=== PATIENT | male | born 1955 | race Caucasian/White ===

== ENCOUNTER 2016-06-23 13:45 | Inpatient (IN) | payer OTHER ==
[~2016-06-23] VITALS: Ht 180.3 cm; Wt 134.2 kg
--- NOTE | ~2016-06-23 | D ---
[facility] [address] [place] [address] DISCHARGE SUMMARY Name: JENN BASURTO [place] Room #: 516-1 ADM IN M.R.#: [id number] Admission: 06/23/16 Attend Phys: Vimal Contreras MD Discharge: Date of : 55 Report #: [id number] THIS REPORT FOR: //name// CC: Vimal BUENO DATE OF SERVICE: 07/11/2016 ADDENDUM The patient missed some therapy on 07/08/2016 due to low blood pressure. By: 0946 1203 Vimal Contreras MD /nt
--- NOTE | ~2016-06-23 | EKG ---
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: Kait LADD : 1955 Requested By: Odell Castanon Order Number: [id number] MD: John Alatorre Measurements Intervals [place] Rate: 67 P: 52 NM: 179 QRS: 93 QRSD: 105 T: 103 QT: 435 QTc: 460 Interpretive Statements Sinus rhythm Early R wave progression Nonspecific repol abnormality, diffuse leads Compared to ECG 06/20/2016 07:52:33 nonspecific change in the ST and T wave segments Electronically Signed On 07-08-2016 9:41:19 CDT by John Alatorre [email or web address] <ELECTRONICALLY SIGNED> By: John Alatorre MD, [facility] 07/08/16 0941 0 0 John Alatorre MD, [facility] /EPI
--- NOTE | ~2016-06-23 | HC ---
[facility] [place] [address] CONSULTATION Name: JENN BASURTO Room #: 516-1 ADM IN M.R.#: [id number] Admission: 06/23/16 Attend Phys: Vimal Contreras MD Discharge: Date of : 55 Report #: [id number] THIS REPORT FOR: //name// CC: Vimal BUENO DATE OF SERVICE: 06/26/2016 NEUROBEHAVIORAL STATUS EXAM AGE: 60. ATTENDING PHYSICIAN: Vimal Contreras M.D. CLINICAL SALES CONSULTANT: Mike Kong, PhD CLINICAL PRESENTATION: The patient is a 60-year-old male admitted to the rehabilitation unit at [facility] for a comprehensive inpatient rehabilitation program to improve functional mobility, activities of daily living and self-care and mental status secondary to an encephalopathy with a hypoxic component. 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 He had been at home, living with his and engaged in daily activities until Monday morning of the week he was admitted. He is reported to have a deterioration in functioning that led to this current hospitalization. Upon admission, he was identified to have acute mental status changes with hypoxia and a temperature of 103. Subsequent diagnosis was an encephalopathy with pulmonary infiltrates. A complete description of his medical condition and history can be found in his medical record. Neuropsychological consultation was requested to provide assistance in the assessment of cognitive and emotional status and to provide recommendations and services. Prior to this most recent medical event, he was living with the assistance of his in their home. He was independent with most basic activities of daily living. He required assistance with instrumental activities of daily living and some aspects of dressing because of residual right hemiparesis from his earlier stroke. He was able to walk independently and did not show evidence of difficulty in verbal expression or level of orientation. TECHNIQUES UTILIZED: Clinical interview, review of medical records, staff consultation and behavioral observation, family interview and Mini Mental Status Exam [address] [address] CONSULTATION Name: JENN BASURTO CEC[place] Room #: 516-1 ADM IN ..#: [id number] Admission: 06/23/16 Attend Phys: Vimal Contreras MD Discharge: Date of : 55 Report #: [id number] EXAMINATION FINDINGS: The patient was very difficult to arouse during my interview. He was drowsy and frequently would close his eyes and begin snoring. He is reported to have been sluggish and sleepy throughout the morning and early afternoon. His describes him as having been more alert and oriented during his initial transfer to the rehabilitation unit. The patient was not oriented to place or time. He could not describe the reason for his hospitalization. He was not reported to have shown symptoms of anxiety or depression prior to this recent hospitalization. There is no history of substance abuse. Sleep and appetite were described as within normal limits up until this last week. DIAGNOSTIC IMPRESSION: 1. Delirium; hypoactive, acute. 2. Neurocognitive disorder, unspecified, without behavior disorder - extent to be determined. RECOMMENDATIONS: Consider reducing as medically appropriate medications with sedating features. He is taking baclofen, gabapentin and amitriptyline along with hydrocodone. Those medications are reported to have affected his level of alertness and arousal in his past. At this time, he appears very sedated, sluggish and drowsy. I will continue to follow up as needed during his rehabilitation program. Thank you very much for allowing me to provide the consultation on this patient. <ELECTRONICALLY SIGNED> By: Mike Kong, PhD 07/03/16 1508 1407 0058 Mike Kong, PhD /nt
--- NOTE | ~2016-06-23 | H ---
[facility] [place] [address] HISTORY AND PHYSICAL Name: JENN BASURTO Room #: 516-1 ADM IN M.R.#: [id number] Admission: 06/23/16 Attend Phys: Vimal Contreras MD Discharge: Date of : 55 Report #: [id number] THIS REPORT FOR: //name// CC: Vimal BUENO DATE OF SERVICE: 06/24/2016 HISTORY OF PRESENT ILLNESS: The patient is a 60-year-old white male previously known to me from a prior acute inpatient rehabilitation stay 01/02/2016 through 01/22/2016. At that point, he had a prior hemorrhagic stroke with significant residual right hemiparesis and had inapparent unwitnessed seizure. He did well on rehabilitation, was able to be discharged back home on thin liquids transferring min to contact guard assistance and ambulating contact guard to standby 150 feet with a quad cane and right AFO. He has been back home living with his . He was readmitted for acute hospitalization on 06/20/2016 with acute mental status changes with hypoxia and a temperature of 103. He was diagnosed with encephalopathy with significant pulmonary infiltrates and Neurology saw him and diagnosed him with an encephalopathy with no note of any seizures. He was suspected to have aspiration contributing to his pneumonia. He was further stabilized and has been transferred now for acute in-hospital inpatient rehabilitation. PAST MEDICAL HISTORY: Includes the prior ischemic stroke in 05/2015 followed by hemorrhagic stroke in 06/2015 with residual right-sided hemiparesis. 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 Past history also includes coronary artery disease with prior [place], obstructive sleep apnea, exogenous obesity, chronic back pain, history of ITP, ischemic cardiomyopathy, DVT with inferior vena cava filter. PAST SURGICAL HISTORY: Includes shoulder surgery, heart catheterization followed by coronary artery bypass grafting, trach placement with subsequent removal, PEG tube placement with subsequent removal. ALLERGIES: LYRICA and LORTAB. MEDICATIONS: Please see the full medication listing. SOCIAL HISTORY: Lives with his , house 3 steps in with 4 inside. Premorbid quad cane ambulator with a right AFO. 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 HABITS: Smoked 3 packs per day, quitting in 2011. Occasional alcohol. FAMILY HISTORY: Significant for Parkinson's disease and heart disease in his father. [facility] [address] [place] [address] HISTORY AND PHYSICAL Name: JENN BASURTO HEATH Room #: 516-1 ADM IN ..#: [id number] Admission: 06/23/16 Attend Phys: Vimal Contreras MD Discharge: Date of : 55 Report #: [id number] REVIEW OF SYSTEMS: No current complaints of chest pain, shortness of breath or abdominal discomfort. He does have the expressive aphasia, although it might be a little better. No current complaints of chest pain, shortness of breath or abdominal discomfort. PHYSICAL EXAMINATION: GENERAL: A 60-year-old obese white male in no obvious distress. VITAL SIGNS: Last recorded temperature 98.8, pulse 76, respirations 18, blood pressure 147/65. NEUROLOGIC: He is alert, currently on 3 liters nasal prong O2, bearded white male, significant exogenous obesity. He does have an expressive aphasia, but can follow basic 1 step commands. He has a depressed right nasolabial fold. CHEST: Sounded clear to auscultation. CARDIAC: Sounded regular rate and rhythm. ABDOMEN: Significant obesity, bowel sounds positive, nontender. GENITOURINARY AND RECTAL: Deferred. EXTREMITIES: He has functional range of motion of the left upper and left lower extremity without obvious focal weakness. Right upper extremity strength is a grade 2/5. He has trace movement of the right fingers. He does have full fingerbreadth subluxation of that right shoulder. Tone was decreased. Right lower extremity strength was at least a grade 3-3+/5. Right ankle dorsiflexion is a grade 2 to 2-, eversion a 2 to 2-. Functionally, he is mod assist with sit to stand. He ambulates 8 steps with assistance, noted to be min assist with a cane. ASSESSMENT: A 60-year-old white male with the following problem list: 1. Encephalopathy with likely a hypoxic component. 2. Acute respiratory failure that has improved. 3. Acute hypercapnic hypoxic respiratory failure. 4. Pneumonia, Streptococcus question aspiration. 5. Prior hemorrhagic stroke 06/2015 with residual right upper extremity greater than right lower extremity dense hemiparesis. 6. History of obstructive sleep apnea. 7. History of diastolic congestive heart failure. 8. History of atrial fibrillation. 9. Exogenous obesity. PLAN: The patient is admitted for acute in-hospital inpatient rehabilitation. From a postadmission physician evaluation perspective, there are no relevant changes since the preadmission screening. Please see the above review of prior and current medical and functional conditions and comorbidities. Please see the patient's previous and current functional status. As far as risk of complications, he has the above noted medical comorbidities. Initial plan of care involves the interdisciplinary acute inpatient rehabilitation program with goal of maximizing the patient's functional independence, so that he can [address] [address] HISTORY AND PHYSICAL Name: JENN BASURTO Room #: 516-1 ADM IN M.R.#: [id number] Admission: 06/23/16 Attend Phys: Vimal Contreras MD Discharge: Date of : 55 Report #: [id number] hopefully return back to the home setting with his . Prognosis is reasonably good with estimated length of stay probably at least 10 days to 2 weeks and potentially longer. We will need to see if he can be weaned off the oxygen as he indicated he was not on oxygen premorbidly. Potential barriers would include his multiple medical comorbidities and decreased functional status. <ELECTRONICALLY SIGNED> By: Vimal Contreras MD 06/24/16 1539 1023 1058 Vimal Contreras MD /nt
--- NOTE | ~2016-06-23 | PLAN ---
[facility] [place] [address] [place] [address] REHAB UNIT PLAN OF CARE Name: JENN BASURTO Room #: 516-1 ADM IN M.R.#: [id number] Admission: 06/23/16 Attend Phys: Vimal Contreras MD Discharge: Date of : 55 Report #: [id number] THIS REPORT FOR: //name// CC: Vimal BUENO DATE OF SERVICE: 06/25/2016 HISTORY OF PRESENT ILLNESS: The patient is seen back earlier. He is no distress. Temperature 36.9, pulse 73, respirations 18, blood pressure 120/63. The patient has been urinating without difficulty with bladder scan results noted to be less than 100 mL. He is working in therapies with transfers, max assist. Gait is min assist 75 feet with a quad cane and the AFO. In occupational therapy, he is dependent for lower body dressing, mod assist for upper body dressing. In speech therapy, he has mild to moderate comprehensive deficits with moderate to severe expressive deficits. ASSESSMENT: 1. Encephalopathy with likely a hypoxic component. 2. Acute respiratory failure that improved. 3. Acute hypoxic hypercapnic respiratory failure. 4. Pneumonia Streptococcus, question aspiration. 5. Prior hemorrhagic stroke 06/16/2016 with residual right upper extremity greater than right lower extremity dense hemiparesis. 6. History of obstructive sleep apnea. 7. History of diastolic congestive heart failure. 8. History of atrial fibrillation. 9. Exogenous obesity. PLAN: The overall plan of care is based on the preadmission screen, post-admission physician evaluation and information garnered from therapy assessments. 1. Estimated length of stay is probably at least 10 days to 2 weeks and likely longer as needed. 2. Medical prognosis is reasonably good. 3. Anticipated interventions include the interdisciplinary acute inpatient rehabilitation program. 4. Anticipated functional outcomes would be improvement in mobility and ADLs swallowing as well as cognition, so that he can return back to the home setting. 5. Discharge destination would be back home with his . 6. Expected therapy by discipline includes PT, OT and speech 1 hour per day each [facility] [address] [place] [address] REHAB UNIT PLAN OF CARE Name: JENN BASURTO [place] Room #: 516-1 ADM IN M.R.#: [id number] Admission: 06/23/16 Attend Phys: Vimal Contreras MD Discharge: Date of : 55 Report #: [id number] five days a week throughout the duration of the acute inpatient rehabilitation stay. <ELECTRONICALLY SIGNED> By: Vimal Contreras MD 07/04/16 1447 1917 2034 Vimal Contreras MD /nt
--- NOTE | ~2016-06-23 | D ---
[facility] [address] [place] [address] DISCHARGE SUMMARY Name: JENN BASURTO HEATH Room #: 516-1 DIS IN M.R.#: [id number] Admission: 06/23/16 Attend Phys: Vimal Contreras MD Discharge: 07/12/16 Date of : 55 Report #: [id number] THIS REPORT FOR: //name// CC: Vimal BUENO DATE OF SERVICE: 07/12/2016 ADDENDUM He is actually being discharged home with adult daycare rather than going home with home healthcare. His feels comfort level with the wrapping and lymphedema treatments and we will be assisting him in the home setting. He will be going to adult daycare at [place] and will not be home bound. By: 1504 2220 Vimal Contreras MD /nt
[~2016-06-23 13:45] MED LIST: ACETAMINOPHEN-1 EAC1 PO; AMITRIPTYLINE H10 M3 PO; AMPICILLIN-SULB3 GM IV; ASPIRIN81 M2 PO; ATIVAN0.5 MG PO; ATORVASTATIN CA40 MG PO; BENADRYL25 MG PO; CATHFLO ACT2 MG/VIAL INJECTION; CELEBREX 200 M200 M1; COREG3.125 MG PO; COUMADIN 3 MG TA3 M1 PO; COUMADIN 4 MG TA4 M1 PO; COUMADIN 5 MG TA5 M1 PER TUBE; CYMBALTA20 MG; CYMBALTA30 MG; DEPAKENE250 MG PER TUBE; DEPAKENE250 MG PO; DEPAKOTE 250MG250 M1 PO; DEPAKOTE ER500 MG PO; ENOXAPARIN120 MG/0.1 SUBQ; FISH OIL 1,0001 EAC5; GABAPENTIN 100100 MG PO; GEMFIBROZIL 60600 M1 PO; LASIX 20 MG TAB20 MG PO; LASIX 40 MG TAB40 M1 PO; LASIX 40 MG TAB40 M2 IV; LIORESAL 10 MG10 MG PO; MILK OF MA2400 MG/10 PO; MULTIVITAMINS PO; NEURONTIN600 MG PO; NITROGLYCERIN0.4 MG SUBLING; OXYCODONE H5 MG/5 ML PO; PACERONE 200 M200 M1 PO; PEPCID40 MG PO; PERCOCET 5-3251 EACH PO; PERCOCET PO; POTASSIUM20 PO; PRADAXA150 MG PO; PREDNISONE 20 M20 MG PO; PREDNISONE50 MG PO; PRILOSEC OTC20 MG PO; PRILOSEC20 MG PER TUBE; PROTONIX 20 MG20 M1 PO; PROTONIX40 MG PO; REQUIP0.5 MG PER TUBE; SEROQUEL 50 MG50 MG PER TUBE; TOBREX5 ML OPHTHALMIC; TUSSIONEX PENN473 ML PO; ULTRACET TABLE1 EACH PO; ULTRAM 50MG TAB50 MG PO; VALPROIC ACID250 MG PO; VITAMIN D1000 UNI1 PO; ZOFRAN ODT4 MG PO; ZPAK PO
[2016-06-23] MEDS ORDERED: AUGMENTIN 875-1 EACH PO (14:15)
[2016-06-23 17:30] VITALS: BP 132/62
[2016-06-23 20:15] VITALS: BP 121/69
[2016-06-24 06:30] VITALS: BP 147/65
[2016-06-24 10:00] LABS: ALBUMIN 2.8 g/dL (3.4-5.0); CALCIUM 8.6 mg/dL (8.5-10.1); MAGNESIUM 2.1 mg/dL (1.8-2.4); POTASSIUM 3.3 mmol/L (3.5-5.1); TOTAL BILIRUBIN 0.4 mg/dL (<0.1-1.0); TOTAL PROTEIN 6.3 g/dL (6.4-8.2)
[2016-06-24 15:52] VITALS: BP 114/64
[2016-06-24 20:35] VITALS: BP 136/79
[2016-06-25 05:47] VITALS: BP 148/75
[2016-06-25 16:20] VITALS: BP 120/63
[2016-06-25 19:29] VITALS: BP 125/75
[2016-06-26 05:19] VITALS: BP 115/57
[2016-06-26 08:30] VITALS: BP 132/67
[2016-06-26 12:26] VITALS: BP 110/85
[2016-06-26 14:10] LABS: HEMATOCRIT 32.3 % (42.0-52.0); HEMOGLOBIN 10.7 gm/dL (14.0-18.0); MCH 30.2 pg (26.0-34.0); MCHC 33.2 g/dL (28.0-37.0); RBC 3.55 mil/uL (4.50-6.00); RDW 14.1 % (10.5-14.5)
[2016-06-26 14:25] LABS: CALCIUM 8.9 mg/dL (8.5-10.1); POTASSIUM 4.9 mmol/L (3.5-5.1)
[2016-06-26 16:00] VITALS: BP 109/62
[2016-06-27 04:00] VITALS: BP 130/63
[2016-06-27 15:34] VITALS: BP 129/72
[2016-06-27 20:53] VITALS: BP 124/64
[2016-06-28 03:00] VITALS: BP 113/58
[2016-06-28 09:00] VITALS: BP 125/60
[2016-06-28 16:00] VITALS: BP 100/50
[2016-06-28 21:55] VITALS: BP 124/75
[2016-06-29 05:17] LABS: HEMOGLOBIN 10.5 gm/dL (14.0-18.0); MCH 30.5 pg (26.0-34.0); MCHC 33.9 g/dL (28.0-37.0); RBC 3.45 mil/uL (4.50-6.00); RDW 14.2 % (10.5-14.5); WBC 7.4 thou/uL (4.0-11.0)
[2016-06-29 05:25] VITALS: BP 115/64
[2016-06-29 05:55] LABS: CALCIUM 8.7 mg/dL (8.5-10.1); CREATININE 1.1 mg/dL (0.6-1.3); MAGNESIUM 2.2 mg/dL (1.8-2.4); POTASSIUM 4.4 mmol/L (3.5-5.1)
[2016-06-29 14:27] VITALS: BP 114/69
[2016-06-29 16:09] VITALS: BP 123/62
[2016-06-30 16:43] VITALS: BP 129/62
[2016-07-01 04:12] VITALS: BP 119/52
[2016-07-01 05:37] LABS: CALCIUM 8.5 mg/dL (8.5-10.1); POTASSIUM 4.6 mmol/L (3.5-5.1)
[2016-07-01 14:59] VITALS: BP 99/49
[2016-07-01 15:32] VITALS: BP 119/59
[2016-07-02 05:40] VITALS: BP 117/54
[2016-07-02 16:00] VITALS: BP 113/60
[2016-07-03 04:27] LABS: CALCIUM 8.5 mg/dL (8.5-10.1); CREATININE 1.2 mg/dL (0.6-1.3); POTASSIUM 3.8 mmol/L (3.5-5.1)
[2016-07-03 04:44] LABS: HEMATOCRIT 33.1 % (42.0-52.0); MCH 30.5 pg (26.0-34.0); MCHC 33.3 g/dL (28.0-37.0); MCV 91.6 fL (80.0-100.0); RBC 3.61 mil/uL (4.50-6.00); RDW 14.4 % (10.5-14.5); WBC 7.3 thou/uL (4.0-11.0)
[2016-07-03 06:03] VITALS: BP 137/62
[2016-07-03 16:00] VITALS: BP 120/58
[2016-07-04 04:00] VITALS: BP 101/54
[2016-07-04 05:52] LABS: CALCIUM 8.6 mg/dL (8.5-10.1); CREATININE 1.2 mg/dL (0.6-1.3)
[2016-07-04 16:00] VITALS: BP 115/59
[2016-07-05 04:14] LABS: CALCIUM 8.8 mg/dL (8.5-10.1); CREATININE 1.1 mg/dL (0.7-1.3); POTASSIUM 3.6 mmol/L (3.5-5.1)
[2016-07-05 05:20] VITALS: BP 109/46
[2016-07-05 08:39] VITALS: BP 111/67
[2016-07-05 15:04] VITALS: BP 103/69
[2016-07-06 05:45] VITALS: BP 127/68
[2016-07-06 06:03] LABS: HEMATOCRIT 35.9 % (42.0-52.0); HEMOGLOBIN 12.1 gm/dL (14.0-18.0); MCH 30.4 pg (26.0-34.0); MCHC 33.7 g/dL (28.0-37.0); MCV 90.2 fL (80.0-100.0); RBC 3.98 mil/uL (4.50-6.00); RDW 14.1 % (10.5-14.5); WBC 5.7 thou/uL (4.0-11.0)
[2016-07-06 06:10] LABS: CREATININE 1.1 mg/dL (0.7-1.3)
[2016-07-06 06:14] LABS: POTASSIUM 2.8 mmol/L (3.5-5.1)
[2016-07-06 08:00] VITALS: BP 116/64
[2016-07-06 16:17] VITALS: BP 110/47
[2016-07-06 19:51] VITALS: BP 109/69
[2016-07-07 06:08] VITALS: BP 121/63
[2016-07-07 11:45] VITALS: BP 146/71
[2016-07-07 13:43] LABS: HEMATOCRIT 36.9 % (42.0-52.0); HEMOGLOBIN 12.5 gm/dL (14.0-18.0); MCH 30.1 pg (26.0-34.0); MCHC 33.8 g/dL (28.0-37.0); MCV 89.1 fL (80.0-100.0); RBC 4.15 mil/uL (4.50-6.00); RDW 14.5 % (10.5-14.5); WBC 5.7 thou/uL (4.0-11.0)
[2016-07-07 13:52] LABS: CALCIUM 8.9 mg/dL (8.5-10.1); CREATININE 1.1 mg/dL (0.7-1.3); MAGNESIUM 2.1 mg/dL (1.8-2.4); POTASSIUM 3.2 mmol/L (3.5-5.1)
[2016-07-08 05:06] VITALS: BP 79/40
[2016-07-08 06:15] VITALS: BP 67/37
[2016-07-08 06:23] LABS: HEMATOCRIT 35.2 % (42.0-52.0); HEMOGLOBIN 11.9 gm/dL (14.0-18.0); MCH 30.6 pg (26.0-34.0); MCHC 33.8 g/dL (28.0-37.0); MCV 90.4 fL (80.0-100.0); RBC 3.89 mil/uL (4.50-6.00); RDW 15.1 % (10.5-14.5); WBC 10.6 thou/uL (4.0-11.0)
[2016-07-08 06:35] LABS: CALCIUM 8.9 mg/dL (8.5-10.1); MAGNESIUM 2.2 mg/dL (1.8-2.4); POTASSIUM 3.6 mmol/L (3.5-5.1)
[2016-07-08 06:36] LABS: CREATININE 2.6 mg/dL (0.7-1.3)
[2016-07-08 10:00] VITALS: BP 90/53
[2016-07-08 15:26] VITALS: BP 87/45
[2016-07-08 18:15] VITALS: BP 100/53
[2016-07-09 03:34] VITALS: BP 95/58
[2016-07-09 03:37] VITALS: BP 115/60
[2016-07-09 05:32] LABS: HEMATOCRIT 34.1 % (42.0-52.0); HEMOGLOBIN 11.5 gm/dL (14.0-18.0); MCH 30.9 pg (26.0-34.0); MCHC 33.7 g/dL (28.0-37.0); MCV 91.6 fL (80.0-100.0); RBC 3.72 mil/uL (4.50-6.00); RDW 15.1 % (10.5-14.5); WBC 5.6 thou/uL (4.0-11.0)
[2016-07-09 05:44] LABS: CALCIUM 8.6 mg/dL (8.5-10.1); CREATININE 2.2 mg/dL (0.7-1.3); MAGNESIUM 2.5 mg/dL (1.8-2.4)
[2016-07-09 16:00] VITALS: BP 111/50
[2016-07-10 04:05] LABS: CALCIUM 8.5 mg/dL (8.5-10.1); CREATININE 1.7 mg/dL (0.7-1.3); POTASSIUM 4.2 mmol/L (3.5-5.1)
[2016-07-10 05:09] VITALS: BP 116/46
[2016-07-10 15:45] VITALS: BP 121/68
[2016-07-11 05:46] VITALS: BP 124/56
[2016-07-11 10:08] LABS: ABG SAMPLE TYPE ARTERIAL; BE(vivo) 2.8 mmol/L (-2 to +3); O2(CT) 16.6 mL/dL (15.0-23.0); O2Hb 95.5 % (92.0-98.0); pH 7.447 (7.360-7.450); tCO2 28.2 mmol/L (24.0-30.0)
[2016-07-11 10:11] LABS: LACTATE 3.73 mmol/L (0.5-2.0); STICK SITE L.RADIAL
[2016-07-11 16:00] VITALS: BP 118/51
[2016-07-11 16:57] LABS: HEMATOCRIT 35.4 % (42.0-52.0); HEMOGLOBIN 11.9 gm/dL (14.0-18.0); MCH 30.3 pg (26.0-34.0); MCHC 33.5 g/dL (28.0-37.0); MCV 90.5 fL (80.0-100.0); RBC 3.91 mil/uL (4.50-6.00); WBC 4.9 thou/uL (4.0-11.0)
[2016-07-11 17:14] LABS: CALCIUM 8.5 mg/dL (8.5-10.1); POTASSIUM 4.1 mmol/L (3.5-5.1)
[2016-07-11 20:29] LABS: URINE BILIRUBIN NEGATIVE (Negative); URINE BLOOD NEGATIVE (Negative); URINE COLOR YELLOW; URINE GLUCOSE-RANDOM* NEGATIVE (Negative); URINE KETONES NEGATIVE (Negative); URINE LEUKOCYTES-REFLEX NEGATIVE (Negative); URINE PROTEIN (DIPSTICK) NEGATIVE (Negative); URINE UROBILINOGEN 0.2 E.U./dl (0.2-1.0)
[2016-07-12] VITALS (7 sets, daily range): BP systolic 101–112; BP diastolic 44–66
[2016-07-12] MEDS ORDERED: LIORESAL 10 MG10 MG PO (09:56)
[2016-07-12] MEDS ORDERED: GABAPENTIN 100100 MG PO (09:56)
[2016-07-12] MEDS ORDERED: FLOMAX0.4 MG PO (09:56)
[2016-07-12] MEDS ORDERED: PRINIVIL5 MG PO (09:56)
[2016-07-12] MEDS ORDERED: COLACE100 MG PO (09:56)
== END 2016-07-12 17:00 | disposition home or self-care (01) | DRG 91 ==
PROVIDERS: Hospitalist; Internal Medicine; Internal Medicine Pulmonary Disease; Nurse Practitioner
PROC: 5A09557 Assistance with Respiratory Ventilation, Greater than 96 Consecutive Hours, Continuous Positive Airway Pressure (ICD-10-PCS; principal; 2016-06-24)
DX: G93.1 Anoxic brain damage, not elsewhere classified (principal); J96.01 Acute respiratory failure with hypoxia; J96.02 Acute respiratory failure with hypercapnia; J15.20 Pneumonia due to staphylococcus, unspecified; I50.43 Acute on chronic combined systolic (congestive) and diastolic (congestive) heart failure; G92 Toxic encephalopathy; N17.9 Acute kidney failure, unspecified; E46 Unspecified protein-calorie malnutrition; I69.351 Hemiplegia and hemiparesis following cerebral infarction affecting right dominant side; Z68.41 Body mass index [BMI] 40.0-44.9, adult; G47.33 Obstructive sleep apnea (adult) (pediatric); I48.91 Unspecified atrial fibrillation; E66.09 Other obesity due to excess calories; G31.84 Mild cognitive impairment of uncertain or unknown etiology; I89.0 Lymphedema, not elsewhere classified; G89.29 Other chronic pain; M54.9 Dorsalgia, unspecified; I25.5 Ischemic cardiomyopathy; R53.81 Other malaise; I25.10 Atherosclerotic heart disease of native coronary artery without angina pectoris; E78.5 Hyperlipidemia, unspecified; I11.0 Hypertensive heart disease with heart failure; J32.9 Chronic sinusitis, unspecified; T50.905A Adverse effect of unspecified drugs, medicaments and biological substances, initial encounter; E87.6 Hypokalemia; I25.2 Old myocardial infarction; Z86.718 Personal history of other venous thrombosis and embolism; Z88.8 Allergy status to other drugs, medicaments and biological substances; Z82.49 Family history of ischemic heart disease and other diseases of the circulatory system; Z81.8 Family history of other mental and behavioral disorders; Z87.891 Personal history of nicotine dependence; Z91.14 Patient's other noncompliance with medication regimen; Y92.89 Other specified places as the place of occurrence of the external cause; Z93.0 Tracheostomy status; Z95.1 Presence of aortocoronary bypass graft; Z93.1 Gastrostomy status
CPT/HCPCS: 10112

== ENCOUNTER 2016-08-03 00:28 | Emergency (ER) | payer OTHER ==
[~2016-08-03] VITALS: Ht 180.3 cm; Wt 133.8 kg
--- NOTE | ~2016-08-03 | EKG ---
[place] [address] [facility] [place] [address] ELECTROCARDIOGRAM REPORT Name: SHERINEJENNDesiree JOE [id number] Admission: 08/03/16 Attend Phys: Discharge: 08/03/16 Date of : 55 Report #: [id number] THIS REPORT FOR: //name// [facility] ED Test Date: 2016-08-03 Test Time: 00:42:16 Pat Name: JENN BASURTO Department: Room: Gender: M Estate Planning Counselor: WAQAS : 1955 Requested By: Aroldo Caldera Order Number: [id number] MD: John Alatorre Measurements Intervals [place] Rate: 69 P: 38 ND: 176 QRS: 89 QRSD: 109 T: 104 QT: 408 QTc: 437 Interpretive Statements Sinus rhythm Borderline right axis deviation Borderline repolarization abnormality Compared to ECG 07/08/2016 08:11:43 No significant change was found Electronically Signed On 08-03-2016 8:02:59 CDT by John Alatorre [email or web address] <ELECTRONICALLY SIGNED> By: John Alatorre MD, [facility] 08/03/16 0802 John Alatorre MD, [facility] /EPI
[~2016-08-03 00:28] MED LIST changes: +AUGMENTIN 875-1 EACH PO; +COLACE100 MG PO; +FLOMAX0.4 MG PO; +PRINIVIL5 MG PO
[2016-08-03 01:12] LABS: ABSOLUTE NEUTROPHILS 2.1 thou/uL (1.4-8.2); BASOPHILS 0.4 % (0.0-2.0); HEMATOCRIT 34.2 % (42.0-52.0); HEMOGLOBIN 11.5 gm/dL (14.0-18.0); LYMPHOCYTES 36.3 % (24.0-44.0); MCHC 33.8 g/dL (28.0-37.0); MONOCYTES 11.4 % (1.0-8.0); PLATELET COUNT 162 thou/uL (150-400); POLYS 47.9 % (36.0-66.0); RBC 3.72 mil/uL (4.50-6.00); RDW 14.8 % (10.5-14.5); WBC 4.3 thou/uL (4.0-11.0)
[2016-08-03 01:22] LABS: ANION GAP 7 mmol/L (7-16); BUN 14 mg/dL (7-18); CALCIUM 8.7 mg/dL (8.5-10.1); CHLORIDE 102 mmol/L (98-107); CO2 28 mmol/L (21-32); CREATININE 1.2 mg/dL (0.7-1.3); GLUCOSE 115 mg/dL (74-106); POTASSIUM 4.1 mmol/L (3.5-5.1); SODIUM 137 mmol/L (136-145)
[2016-08-03 01:32] LABS: MANUAL DIFF NO
[2016-08-03 01:34] LABS: ALBUMIN 3.2 g/dL (3.4-5.0); ALKALINE PHOSPHATASE 59 U/L (46-116); NT-PRO BRAIN NAT PEPTIDE 171 pg/mL (<300); SGOT 17 U/L (15-37); SGPT 20 U/L (30-65); TOTAL BILIRUBIN 0.2 mg/dL (<0.1-1.0); TOTAL PROTEIN 6.2 g/dL (6.4-8.2); TROPONIN-I < 0.04 ng/mL (<0.04-0.07)
[2016-08-03 01:59] LABS: URINE BLOOD NEGATIVE (Negative); URINE COLOR YELLOW; URINE GLUCOSE-RANDOM* NEGATIVE (Negative); URINE KETONES TRACE (Negative); URINE LEUKOCYTES-REFLEX NEGATIVE (Negative); URINE PROTEIN (DIPSTICK) NEGATIVE (Negative); URINE SPECIFIC GRAVITY 1.025 (1.003-1.035)
[2016-08-03 02:12] LABS: ICTOTEST (BILI CONFIRMATORY) Negative (Negative); URINE BILIRUBIN NEGATIVE (Negative)
[2016-08-03] MEDS ORDERED: TESSALON PERLE100 MG PO (02:35)
[2016-08-03] MEDS ORDERED: VENTOLIN HFA 1818 GM INH (02:35)
== END 2016-08-03 03:12 | disposition home or self-care (01) ==
LOC: ER 00:28
PROVIDERS: Emergency Medicine
DX: J20.8 Acute bronchitis due to other specified organisms (principal); G89.29 Other chronic pain; I11.0 Hypertensive heart disease with heart failure; I50.9 Heart failure, unspecified; Z95.1 Presence of aortocoronary bypass graft; Z86.73 Personal history of transient ischemic attack (TIA), and cerebral infarction without residual deficits; Z86.69 Personal history of other diseases of the nervous system and sense organs; Z88.5 Allergy status to narcotic agent; Z88.8 Allergy status to other drugs, medicaments and biological substances; F17.210 Nicotine dependence, cigarettes, uncomplicated

== ENCOUNTER 2016-08-21 09:12 | Emergency (ER) | payer OTHER ==
[~2016-08-21] VITALS: Ht 180.3 cm; Wt 130.6 kg
[~2016-08-21 09:12] MED LIST changes: +TESSALON PERLE100 MG PO; +VENTOLIN HFA 1818 GM INH
[2016-08-21 09:48] LABS: ABSOLUTE NEUTROPHILS 2.3 thou/uL (1.4-8.2); BASOPHILS 0.6 % (0.0-2.0); EOSINOPHILS 7.3 % (0.0-3.0); HEMATOCRIT 37.1 % (42.0-52.0); HEMOGLOBIN 12.4 gm/dL (14.0-18.0); LYMPHOCYTES 30.6 % (24.0-44.0); MCH 31.2 pg (26.0-34.0); MCHC 33.4 g/dL (28.0-37.0); MCV 93.5 fL (80.0-100.0); MONOCYTES 8.3 % (1.0-8.0); PLATELET COUNT 143 thou/uL (150-400); POLYS 53.2 % (36.0-66.0); RBC 3.97 mil/uL (4.50-6.00); RDW 14.8 % (10.5-14.5); WBC 4.3 thou/uL (4.0-11.0)
[2016-08-21 09:52] LABS: MANUAL DIFF NO
[2016-08-21 09:56] LABS: CALCIUM 8.4 mg/dL (8.5-10.1); POTASSIUM 3.9 mmol/L (3.5-5.1)
== END 2016-08-21 11:06 | disposition home or self-care (01) ==
LOC: ER 09:12
PROVIDERS: Physician Assistant
DX: R56.9 Unspecified convulsions (principal); R25.2 Cramp and spasm; G47.30 Sleep apnea, unspecified; I21.4 Non-ST elevation (NSTEMI) myocardial infarction; I11.0 Hypertensive heart disease with heart failure; I50.9 Heart failure, unspecified; G40.909 Epilepsy, unspecified, not intractable, without status epilepticus; Z95.5 Presence of coronary angioplasty implant and graft; Z88.8 Allergy status to other drugs, medicaments and biological substances; Z87.891 Personal history of nicotine dependence

== ENCOUNTER → 2016-08-23 | Outpatient (CLI) | payer OTHER | LOC: RAD 12:09 | DX: R06.02 Shortness of breath (principal) ==

== ENCOUNTER 2016-10-23 22:17 | Observation (INO) | payer OTHER ==
[~2016-10-23] VITALS: Ht 180.3 cm; Wt 125.8 kg
--- NOTE | ~2016-10-23 | EKG ---
[address] [place] [address] ELECTROCARDIOGRAM REPORT Name: JENN BASURTO [place] Room #: 210-P [facility]#: [id number] Admission: 10/24/16 Attend Phys: Corby Law MD Discharge: 10/24/16 Date of : 55 Report #: [id number] THIS REPORT FOR: //name// [facility] ED Test Date: 2016-10-23 Test Time: 22:22:17 Pat Name: JENN BASURTO Department: Room: 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: JERROD : 1955 Requested By: Christophe Fonseca Order Number: [id number] MD: John Alatorre Measurements Intervals [place] Rate: 65 P: 39 CO: 180 QRS: 95 QRSD: 109 T: 88 QT: 440 QTc: 458 Interpretive Statements Sinus rhythm Right axis deviation Repolarization abnormality, anterior leads Compared to ECG 08/03/2016 00:42:16 No significant changes Electronically Signed On 10-26-2016 7:02:47 CDT by John Alatorre [email or web address] <ELECTRONICALLY SIGNED> By: John Alatorre MD, [facility] 10/26/16701 21 21 John Alatorre MD, [facility] /EPI
[~2016-10-23 22:17] MED LIST changes: +SENOKOT-S1 TA1 PO
[2016-10-23 22:18] VITALS: BP 123/55
[2016-10-23] MEDS ORDERED: SPIRIVA INH (22:32)
[2016-10-23 23:52] LABS: URINE BILIRUBIN NEGATIVE (Negative); URINE BLOOD NEGATIVE (Negative); URINE COLOR YELLOW; URINE GLUCOSE-RANDOM* NEGATIVE (Negative); URINE KETONES NEGATIVE (Negative); URINE LEUKOCYTES-REFLEX NEGATIVE (Negative); URINE PROTEIN (DIPSTICK) NEGATIVE (Negative); URINE UROBILINOGEN 0.2 E.U./dl (0.2-1.0)
[2016-10-24 00:08] LABS: ABSOLUTE NEUTROPHILS 3.5 thou/uL (1.4-8.2); BASOPHILS 0.6 % (0.0-2.0); EOSINOPHILS 2.7 % (0.0-3.0); HEMOGLOBIN 12.7 gm/dL (14.0-18.0); LYMPHOCYTES 31.3 % (24.0-44.0); MCH 31.6 pg (26.0-34.0); MCHC 34.3 g/dL (28.0-37.0); MCV 92.1 fL (80.0-100.0); MONOCYTES 9.5 % (1.0-8.0); PLATELET COUNT 152 thou/uL (150-400); POLYS 55.9 % (36.0-66.0); RBC 4.02 mil/uL (4.50-6.00); RDW 13.8 % (10.5-14.5); WBC 6.2 thou/uL (4.0-11.0)
[2016-10-24 00:10] LABS: MANUAL DIFF NO
[2016-10-24 00:20] LABS: ANION GAP 9 mmol/L (7-16); BUN 11 mg/dL (7-18); CALCIUM 8.6 mg/dL (8.5-10.1); CHLORIDE 106 mmol/L (98-107); CO2 29 mmol/L (21-32); GLUCOSE 86 mg/dL (74-106); POTASSIUM 3.8 mmol/L (3.5-5.1); SODIUM 144 mmol/L (136-145)
[2016-10-24 00:27] LABS: APTT 32.7 Seconds (24.5-32.8); INR 1.2; PROTIME 12.7 Seconds (9.3-11.4)
[2016-10-24 00:39] LABS: ALBUMIN 3.3 g/dL (3.4-5.0); ALKALINE PHOSPHATASE 57 U/L (46-116); CK-MB MASS 2.5 ng/mL (<0.5-3.6); MAGNESIUM 1.9 mg/dL (1.8-2.4); NT-PRO BRAIN NAT PEPTIDE 160 pg/mL (<300); SGOT 12 U/L (15-37); SGPT 20 U/L (30-65); TOTAL BILIRUBIN 0.3 mg/dL (<0.1-1.0); TROPONIN-I < 0.04 ng/mL (<0.04-0.07)
[2016-10-24 02:16] VITALS: BP 127/86
[2016-10-24 02:31] VITALS: BP 110/65
[2016-10-24] MEDS ORDERED: LASIX 40 MG TAB40 M2 PO (03:40)
[2016-10-24 08:00] VITALS: BP 108/48
[2016-10-24] MEDS ORDERED: ALBUTEROL2.5 MG/31 INH (11:48)
[2016-10-24 13:45] VITALS: BP 112/62
[2016-10-24 14:49] VITALS: BP 112/62
== END 2016-10-24 15:30 | disposition home or self-care (01) ==
LOC: ER 22:17 → EROBS 10-24 01:43 → ER 10-24 01:43 → 2N 10-24 02:14
PROVIDERS: Emergency Medicine
DX: J80 Acute respiratory distress syndrome (principal); I48.2 Chronic atrial fibrillation; R56.9 Unspecified convulsions; I25.2 Old myocardial infarction; I11.0 Hypertensive heart disease with heart failure; I50.22 Chronic systolic (congestive) heart failure; Z86.73 Personal history of transient ischemic attack (TIA), and cerebral infarction without residual deficits; Z72.89 Other problems related to lifestyle; Z87.891 Personal history of nicotine dependence

== ENCOUNTER 2016-12-30 22:39 | Emergency (ER) | payer OTHER ==
[~2016-12-30] VITALS: Ht 172.7 cm; Wt 126.5 kg
--- NOTE | ~2016-12-30 | EKG ---
[place] [address] [employer] [facility] [address] [place] [address] ELECTROCARDIOGRAM REPORT Name: SHERINEJENNDesiree JOE [facility] [id number] Admission: 12/30/16 Attend Phys: Discharge: 12/31/16 Date of : 55 Report #: [id number] THIS REPORT FOR: //name// [facility] ED Test Date: 2016-12-31 Test Time: 00:47:08 Pat Name: JENN BASURTO Department: Room: Gender: M Tower Operator: [id number] : 1955 Requested By: Hong Masterson Order Number: [id number] MD: John Alatorre Measurements Intervals [place] Rate: 61 P: 44 NM: 196 QRS: 55 QRSD: 112 T: 95 QT: 451 QTc: 455 Interpretive Statements Sinus rhythm Early R-wave progression Borderline repolarization abnormality Compared to ECG 10/23/2016 22:22:17 No significant change was found Electronically Signed On 12-31-2016 12:33:22 CDT by John Alatorre [email or web address] <ELECTRONICALLY SIGNED> By: John Alatorre MD, [facility] 12/31/16 1233 John Alatorre MD, [facility] /EPI
[~2016-12-30 22:39] MED LIST changes: +ALBUTEROL2.5 MG/31 INH; +LASIX 40 MG TAB40 M2 PO; +SPIRIVA INH
[2016-12-31 00:55] LABS: ANION GAP 9 mmol/L (7-16); BUN 13 mg/dL (7-18); CALCIUM 8.7 mg/dL (8.5-10.1); CHLORIDE 103 mmol/L (98-107); CO2 23 mmol/L (21-32); CREATININE 0.8 mg/dL (0.7-1.3); GLUCOSE 99 mg/dL (74-106); POTASSIUM 4.1 mmol/L (3.5-5.1); SODIUM 135 mmol/L (136-145)
[2016-12-31 01:04] LABS: TROPONIN-I < 0.04 ng/mL (<0.04-0.07)
[2016-12-31 01:35] LABS: HEMATOCRIT 36.4 % (42.0-52.0); HEMOGLOBIN 12.6 gm/dL (14.0-18.0); MCH 31.7 pg (26.0-34.0); MCHC 34.5 g/dL (28.0-37.0); MCV 91.9 fL (80.0-100.0); RBC 3.96 mil/uL (4.50-6.00); RDW 13.4 % (10.5-14.5); WBC 6.6 thou/uL (4.0-11.0)
== END 2016-12-31 02:45 | disposition home or self-care (01) ==
LOC: ER 22:39
PROVIDERS: Emergency Medicine
DX: R06.00 Dyspnea, unspecified (principal); G89.29 Other chronic pain; M54.2 Cervicalgia; M54.9 Dorsalgia, unspecified; G47.30 Sleep apnea, unspecified; I11.0 Hypertensive heart disease with heart failure; I50.9 Heart failure, unspecified; I48.91 Unspecified atrial fibrillation; F10.99 Alcohol use, unspecified with unspecified alcohol-induced disorder; Z86.718 Personal history of other venous thrombosis and embolism; Z88.8 Allergy status to other drugs, medicaments and biological substances; Z88.5 Allergy status to narcotic agent; Z87.891 Personal history of nicotine dependence

== ENCOUNTER 2017-04-20 18:11 | Emergency (ER) | payer OTHER ==
[~2017-04-20] VITALS: Ht 172.7 cm; Wt 130.6 kg
[2017-04-20 19:38] VITALS: BP 109/54
[2017-11-11] MEDS ORDERED: NORCO 5-325 TA1 EACH PO (08:53)
[2017-11-11] MEDS ORDERED: NORFLEX100 MG PO (08:53)
[2017-12-06] MEDS ORDERED: PROMETH-CODEIN 65 ML PO (20:40)
[2017-12-06] MEDS ORDERED: PREDNISONE 20 M20 MG PO (20:40)
[2017-12-06] MEDS ORDERED: MUCINEX600 MG PO (20:40)
[2017-12-06] MEDS ORDERED: DOXYCYCLINE 10100 MG PO (20:40)
[2017-12-30] MEDS ORDERED: ACETAMINOPHEN-1 EAC1 PO (00:26)
[2017-12-30] MEDS ORDERED: CLINDAMYCIN HC300 MG PO (00:26)
== END 2017-04-20 20:11 | disposition home or self-care (01) ==
LOC: ER 18:11
DX: S09.90XA Unspecified injury of head, initial encounter (principal); M79.604 Pain in right leg; M25.511 Pain in right shoulder; Z87.891 Personal history of nicotine dependence; Z88.8 Allergy status to other drugs, medicaments and biological substances; I25.2 Old myocardial infarction; G89.29 Other chronic pain; I10 Essential (primary) hypertension; I50.9 Heart failure, unspecified; Z98.890 Other specified postprocedural states; W19.XXXA Unspecified fall, initial encounter; Y93.89 Activity, other specified; Y92.89 Other specified places as the place of occurrence of the external cause; Y99.8 Other external cause status

== ENCOUNTER 2017-07-07 18:14 | Emergency (ER) | payer OTHER ==
[~2017-07-07] VITALS: Ht 180.3 cm; Wt 122.0 kg
--- NOTE | ~2017-07-07 | EKG ---
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: : 1955 Requested By: Giancarlo Tompkins Order Number: [id number] MD: John Alatorre Measurements Intervals [place] Rate: 70 P: 23 AR: 195 QRS: 36 QRSD: 113 T: 69 QT: 439 QTc: 474 Interpretive Statements Sinus rhythm Early R-wave progression Nonspecific T abnrm, anterolateral leads Baseline wander in lead(s) V2 Compared to ECG 12/31/2016 00:47:08 No significant changes Electronically Signed On 07-09-2017 12:50:09 CDT by John Alatorre [email or web address] <ELECTRONICALLY SIGNED> By: John Alatorre MD, [facility] 07/09/17 1250 1845 1845 John Alatorre MD, [facility] /EPI
[2017-07-07 18:42] LABS: HEMATOCRIT 38.4 % (42.0-52.0); HEMOGLOBIN 13.2 gm/dL (14.0-18.0); MCH 31.3 pg (26.0-34.0); MCHC 34.3 g/dL (28.0-37.0); MCV 91.1 fL (80.0-100.0); RBC 4.21 mil/uL (4.50-6.00); RDW 13.9 % (10.5-14.5)
[2017-07-07 18:53] LABS: ANION GAP 9 mmol/L (7-16); BUN 16 mg/dL (7-18); CALCIUM 8.9 mg/dL (8.5-10.1); CHLORIDE 103 mmol/L (98-107); CO2 24 mmol/L (21-32); CREATININE 1.1 mg/dL (0.7-1.3); POTASSIUM 3.7 mmol/L (3.5-5.1); SODIUM 136 mmol/L (136-145)
[2017-07-07 19:02] LABS: TROPONIN-I < 0.04 ng/mL (<0.06)
[2017-07-07 19:09] LABS: GLUCOSE 104 mg/dL (74-106)
[2017-07-07] MEDS ORDERED: DEPAKOTE 250MG250 MG (21:36)
== END 2017-07-07 21:45 | disposition home or self-care (01) ==
LOC: ER 18:14
PROVIDERS: Emergency Medicine
DX: R06.02 Shortness of breath (principal); G40.909 Epilepsy, unspecified, not intractable, without status epilepticus; G89.29 Other chronic pain; M54.9 Dorsalgia, unspecified; M54.2 Cervicalgia; G47.30 Sleep apnea, unspecified; I11.0 Hypertensive heart disease with heart failure; I50.9 Heart failure, unspecified; I48.91 Unspecified atrial fibrillation; Z88.8 Allergy status to other drugs, medicaments and biological substances; Z87.891 Personal history of nicotine dependence

== ENCOUNTER 2017-09-27 19:31 | Emergency (ER) | payer OTHER ==
[~2017-09-27] VITALS: Ht 180.3 cm; Wt 127.0 kg
--- NOTE | ~2017-09-27 | EKG ---
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: leidy : 1955 Requested By: Charlotte Trujillo Order Number: [id number] MD: John Alatorre Measurements Intervals [place] Rate: 69 P: 40 DC: 196 QRS: 98 QRSD: 124 T: 80 QT: 442 QTc: 474 Interpretive Statements Sinus rhythm Nonspecific ST and T wave abnormality Compared to ECG 07/07/2017 18:45:58 No significant change was found Electronically Signed On 09-28-2017 7:59:30 CDT by John Alatorre [email or web address] <ELECTRONICALLY SIGNED> By: John Alatorre MD, [facility] 09/28/17 0759 13 13 John Alatorre MD, [facility] /EPI
[~2017-09-27 19:31] MED LIST changes: +DEPAKOTE 250MG250 MG
[2017-09-27 20:26] LABS: BASOPHILS 1.1 % (0.0-2.0); EOSINOPHILS 3.5 % (0.0-3.0); HEMATOCRIT 41.9 % (42.0-52.0); HEMOGLOBIN 14.4 gm/dL (14.0-18.0); LYMPHOCYTES 26.4 % (24.0-44.0); MCH 30.6 pg (26.0-34.0); MCHC 34.3 g/dL (28.0-37.0); MCV 89.2 fL (80.0-100.0); MONOCYTES 6.7 % (1.0-8.0); PLATELET COUNT 199 thou/uL (150-400); POLYS 62.3 % (36.0-66.0); RDW 13.3 % (10.5-14.5)
[2017-09-27 20:33] LABS: ANION GAP 11 mmol/L (7-16); BUN 16 mg/dL (7-18); CALCIUM 9.3 mg/dL (8.5-10.1); CHLORIDE 102 mmol/L (98-107); CO2 26 mmol/L (21-32); CREATININE 1.2 mg/dL (0.7-1.3); GLUCOSE 91 mg/dL (74-106); POTASSIUM 3.8 mmol/L (3.5-5.1); SODIUM 139 mmol/L (136-145)
[2017-09-27 20:38] LABS: INR 1.1; PROTIME 11.3 Seconds (9.3-11.4)
[2017-09-27 20:42] LABS: ALBUMIN 4.3 g/dL (3.4-5.0); SGOT 22 U/L (15-37); SGPT 35 U/L (30-65); TOTAL BILIRUBIN 0.3 mg/dL (<0.1-1.0); TOTAL PROTEIN 7.3 g/dL (6.4-8.2); TROPONIN-I <0.06 ng/mL (<0.06)
== END 2017-09-27 22:07 | disposition home or self-care (01) ==
LOC: ER 19:31
PROVIDERS: Physician Assistant
DX: S09.90XA Unspecified injury of head, initial encounter (principal); R04.0 Epistaxis; M54.5 Low back pain; G89.29 Other chronic pain; R19.7 Diarrhea, unspecified; R10.9 Unspecified abdominal pain; I21.4 Non-ST elevation (NSTEMI) myocardial infarction; I48.91 Unspecified atrial fibrillation; I11.0 Hypertensive heart disease with heart failure; I50.9 Heart failure, unspecified; Z87.891 Personal history of nicotine dependence; Z88.1 Allergy status to other antibiotic agents; W19.XXXA Unspecified fall, initial encounter; Y92.002 Bathroom of unspecified non-institutional (private) residence as the place of occurrence of the external cause; Y93.89 Activity, other specified; Y99.8 Other external cause status

== ENCOUNTER → 2017-10-20 | Outpatient (CLI) | payer OTHER | LOC: ULTRA 09:34 | DX: I65.23 Occlusion and stenosis of bilateral carotid arteries (principal) ==

== ENCOUNTER 2017-11-17 19:14 | Emergency (ER) | payer OTHER ==
[~2017-11-17] VITALS: Ht 180.3 cm; Wt 127.0 kg
[~2017-11-17 19:14] MED LIST changes: +NORCO 5-325 TA1 EACH PO; +NORFLEX100 MG PO
[2017-11-17] MEDS ORDERED: NORCO 5-325 TA1 EACH PO (20:22)
== END 2017-11-17 21:07 | disposition home or self-care (01) ==
LOC: ER 19:14
DX: M79.601 Pain in right arm (principal); M25.511 Pain in right shoulder; G89.29 Other chronic pain; M54.2 Cervicalgia; M54.9 Dorsalgia, unspecified; G47.30 Sleep apnea, unspecified; I11.0 Hypertensive heart disease with heart failure; I50.9 Heart failure, unspecified; I48.91 Unspecified atrial fibrillation; Z86.718 Personal history of other venous thrombosis and embolism; Z95.5 Presence of coronary angioplasty implant and graft; Z87.891 Personal history of nicotine dependence; Z88.8 Allergy status to other drugs, medicaments and biological substances

== ENCOUNTER 2018-03-16 17:23 | Emergency (ER) | payer OTHER ==
[~2018-03-16] VITALS: Ht 180.3 cm; Wt 131.5 kg
[~2018-03-16 17:23] MED LIST changes: +CLINDAMYCIN HC300 MG PO; +DOXYCYCLINE 10100 MG PO; +MUCINEX600 MG PO; +PROMETH-CODEIN 65 ML PO
[2018-03-16] MEDS ORDERED: ALBUTEROL2.5 MG/31 INH (17:41)
[2018-03-16] MEDS ORDERED: VENTOLIN HFA 1818 GM INH (17:41)
[2018-03-16 18:33] LABS: ABSOLUTE NEUTROPHILS 4.1 thou/uL (1.4-8.2); BASOPHILS 0.8 % (0.0-2.0); EOSINOPHILS 6.1 % (0.0-3.0); HEMOGLOBIN 13.1 gm/dL (14.0-18.0); LYMPHOCYTES 26.4 % (24.0-44.0); MCH 30.1 pg (26.0-34.0); MCHC 34.4 g/dL (28.0-37.0); MCV 87.6 fL (80.0-100.0); MONOCYTES 7.5 % (1.0-8.0); PLATELET COUNT 190 thou/uL (150-400); POLYS 59.2 % (36.0-66.0); RBC 4.34 mil/uL (4.50-6.00)
[2018-03-16 18:38] LABS: CREATININE 1.1 mg/dL (0.7-1.3); POTASSIUM 3.7 mmol/L (3.5-5.1)
[2018-03-16] MEDS ORDERED: KEFLEX500 M1 PO (19:31)
[2018-03-16 19:34] VITALS: BP 119/52
== END 2018-03-16 19:40 | disposition home or self-care (01) ==
LOC: ER 17:23
PROVIDERS: Emergency Medicine
DX: S50.11XA Contusion of right forearm, initial encounter (principal); M54.2 Cervicalgia; G89.29 Other chronic pain; G47.30 Sleep apnea, unspecified; I11.0 Hypertensive heart disease with heart failure; I50.9 Heart failure, unspecified; I48.91 Unspecified atrial fibrillation; Z86.718 Personal history of other venous thrombosis and embolism; Z95.1 Presence of aortocoronary bypass graft; Z95.5 Presence of coronary angioplasty implant and graft; Z87.891 Personal history of nicotine dependence; Z88.8 Allergy status to other drugs, medicaments and biological substances; X58.XXXA Exposure to other specified factors, initial encounter; Y93.89 Activity, other specified; Y92.89 Other specified places as the place of occurrence of the external cause; Y99.8 Other external cause status

== ENCOUNTER 2018-06-21 18:21 | Emergency (ER) | payer OTHER ==
[~2018-06-21] VITALS: Ht 180.3 cm; Wt 131.5 kg
[~2018-06-21 18:21] MED LIST changes: +KEFLEX500 M1 PO
[2018-06-21 20:58] LABS: ABSOLUTE NEUTROPHILS 4.8 thou/uL (1.4-8.2); BASOPHILS 0.5 % (0.0-2.0); EOSINOPHILS 6.7 % (0.0-3.0); HEMATOCRIT 36.3 % (42.0-52.0); HEMOGLOBIN 12.4 gm/dL (14.0-18.0); LYMPHOCYTES 20.4 % (24.0-44.0); MCH 29.6 pg (26.0-34.0); MCV 86.9 fL (80.0-100.0); MONOCYTES 8.8 % (1.0-8.0); PLATELET COUNT 204 thou/uL (150-400); POLYS 63.6 % (36.0-66.0); RBC 4.18 mil/uL (4.50-6.00); RDW 13.7 % (10.5-14.5); WBC 7.6 thou/uL (4.0-11.0)
[2018-06-21 21:13] LABS: CALCIUM 8.4 mg/dL (8.5-10.1); CREATININE 0.9 mg/dL (0.7-1.3)
[2018-06-21] MEDS ORDERED: PREDNISONE 20 M20 MG PO (22:45)
[2018-06-21 23:00] VITALS: BP 162/82
== END 2018-06-21 23:25 | disposition home or self-care (01) ==
LOC: ER 18:21
PROVIDERS: Emergency Medicine
DX: L50.9 Urticaria, unspecified (principal); G89.29 Other chronic pain; M54.2 Cervicalgia; M54.9 Dorsalgia, unspecified; G47.30 Sleep apnea, unspecified; I11.0 Hypertensive heart disease with heart failure; I50.30 Unspecified diastolic (congestive) heart failure; I48.91 Unspecified atrial fibrillation; Z86.718 Personal history of other venous thrombosis and embolism; Z86.73 Personal history of transient ischemic attack (TIA), and cerebral infarction without residual deficits; Z87.891 Personal history of nicotine dependence; Z88.8 Allergy status to other drugs, medicaments and biological substances

== ENCOUNTER 2018-08-16 20:18 | Emergency (ER) | payer OTHER ==
[~2018-08-16] VITALS: Ht 180.3 cm; Wt 131.5 kg
[2018-08-16] MEDS ORDERED: STIOLTO RESPIMAT4 GM INH (20:42)
[2018-08-16 20:58] LABS: ABSOLUTE NEUTROPHILS 4.8 thou/uL (1.4-8.2); BASOPHILS 0.6 % (0.0-2.0); EOSINOPHILS 4.1 % (0.0-3.0); HEMATOCRIT 35.2 % (42.0-52.0); HEMOGLOBIN 11.7 gm/dL (14.0-18.0); LYMPHOCYTES 16.9 % (24.0-44.0); MCH 28.8 pg (26.0-34.0); MCHC 33.3 g/dL (28.0-37.0); MCV 86.4 fL (80.0-100.0); MONOCYTES 10.7 % (1.0-8.0); PLATELET COUNT 246 thou/uL (150-400); POLYS 67.7 % (36.0-66.0); RBC 4.07 mil/uL (4.50-6.00); RDW 13.8 % (10.5-14.5); WBC 7.1 thou/uL (4.0-11.0)
[2018-08-16 21:02] LABS: CALCIUM 9.2 mg/dL (8.5-10.1); POTASSIUM 4.2 mmol/L (3.5-5.1)
[2018-08-16 21:06] LABS: ALBUMIN 3.5 g/dL (3.4-5.0); TOTAL BILIRUBIN 0.5 mg/dL (<0.1-1.0); TOTAL PROTEIN 6.6 g/dL (6.4-8.2)
[2018-08-16 22:17] VITALS: BP 133/96
[2018-08-17] MEDS ORDERED: NORCO 5-325 TA1 EACH PO (21:28)
== END 2018-08-16 22:18 | disposition home or self-care (01) ==
LOC: ER 20:18
PROVIDERS: Physician Assistant
DX: R56.9 Unspecified convulsions (principal); M54.9 Dorsalgia, unspecified; M54.2 Cervicalgia; G89.29 Other chronic pain; G47.30 Sleep apnea, unspecified; I11.0 Hypertensive heart disease with heart failure; I50.9 Heart failure, unspecified; I48.91 Unspecified atrial fibrillation; Z86.718 Personal history of other venous thrombosis and embolism; Z86.73 Personal history of transient ischemic attack (TIA), and cerebral infarction without residual deficits; Z87.891 Personal history of nicotine dependence; Z88.8 Allergy status to other drugs, medicaments and biological substances

== ENCOUNTER 2018-08-17 17:54 | Emergency (ER) | payer OTHER ==
[~2018-08-17] VITALS: Ht 180.3 cm; Wt 131.5 kg
[2018-08-17 19:14] LABS: ABSOLUTE NEUTROPHILS 5.1 thou/uL (1.4-8.2); BASOPHILS 0.5 % (0.0-2.0); EOSINOPHILS 3.5 % (0.0-3.0); HEMOGLOBIN 11.7 gm/dL (14.0-18.0); LYMPHOCYTES 18.6 % (24.0-44.0); MCH 28.5 pg (26.0-34.0); MCHC 33.5 g/dL (28.0-37.0); MCV 85.1 fL (80.0-100.0); MONOCYTES 9.1 % (1.0-8.0); PLATELET COUNT 226 thou/uL (150-400); POLYS 68.3 % (36.0-66.0); RBC 4.11 mil/uL (4.50-6.00); RDW 13.9 % (10.5-14.5); WBC 7.5 thou/uL (4.0-11.0)
[2018-08-17 19:23] LABS: CALCIUM 9.4 mg/dL (8.5-10.1); CREATININE 0.9 mg/dL (0.7-1.3); POTASSIUM 4.1 mmol/L (3.5-5.1)
[2018-08-17 19:29] LABS: ALBUMIN 3.7 g/dL (3.4-5.0); DIRECT BILIRUBIN 0.2 mg/dL (<0.1-0.3); TOTAL BILIRUBIN 0.6 mg/dL (<0.1-1.0); TOTAL PROTEIN 6.8 g/dL (6.4-8.2)
[2018-08-17 20:10] LABS: URINE BILIRUBIN NEGATIVE (Negative); URINE BLOOD NEGATIVE (Negative); URINE CLARITY CLEAR; URINE COLOR YELLOW; URINE GLUCOSE-RANDOM* NEGATIVE (Negative); URINE KETONES TRACE (Negative); URINE LEUKOCYTES-REFLEX NEGATIVE (Negative); URINE NITRITE-REFLEX NEGATIVE (Negative); URINE PROTEIN (DIPSTICK) NEGATIVE (Negative); URINE SPECIFIC GRAVITY 1.025 (1.005-1.035)
[2018-08-17 20:17] LABS: AMP/METHAMP Negative (Negative); BARBITURATES Negative (Negative); BENZODIAZEPINES POSITIVE (Negative); COCAINE Negative (Negative); METHADONE Negative (Negative); OPIATES POSITIVE (Negative); PCP Negative (Negative)
[2018-08-17] MEDS ORDERED: NORCO 5-325 TA1 EACH PO (21:28)
[2018-08-17 21:44] VITALS: BP 117/35
== END 2018-08-17 21:46 | disposition home or self-care (01) ==
LOC: ER 17:54
PROVIDERS: Emergency Medicine
DX: M79.601 Pain in right arm (principal); G40.909 Epilepsy, unspecified, not intractable, without status epilepticus; M54.2 Cervicalgia; G89.29 Other chronic pain; G47.30 Sleep apnea, unspecified; I48.91 Unspecified atrial fibrillation; I11.0 Hypertensive heart disease with heart failure; I50.9 Heart failure, unspecified; Z95.1 Presence of aortocoronary bypass graft

== ENCOUNTER → 2018-08-17 | Outpatient (CLI) | payer OTHER ==
[~2018-08-17] MED LIST changes: +STIOLTO RESPIMAT4 GM INH
--- NOTE | 2018-08-20 16:30 | EEG ---
[facility] [place] [address] ELECTROENCEPHALOGRAM Name: JENN BASURTO Room #: [facility]#: [id number] ������������������ Admission: 08/17/18 ������������������ Attend Phys: Willy Hickey MD Discharge: ������������������ Date of : 55 Report #: [id number] ����������������������������������������������������������������� [id number] THIS REPORT FOR: //name// CC: FAM physician/PCP Willy Hickey DATE OF SERVICE: 08/17/2018 This patient is being evaluated for seizure. EEG was done by placing the electrode by standard 10-20 system of electrode placement. Both referential and sequential montages were used for recording. Background activity in this patient's EEG is about 8-9 Hz and 30 microvolt. There is a symmetrical activity. Photic stimulation is unremarkable. The patient became drowsy that is associated with bilateral slowing. Throughout the record, no active epileptiform activity was noticed. IMPRESSION: This EEG demonstrates some intermixed slowing, which is a nonspecific finding, but no active epileptiform activity was noticed. Thank you very much for this referral. ���������������������������������������� <ELECTRONICALLY SIGNED> ���������������������������������������� By: Willy Hickey MD ��������������������������������������������� 08/20/18 1630 0840 0853 Willy Hickey MD /nt
== END ==
LOC: NEURO 16:31
DX: I63.9 Cerebral infarction, unspecified (principal); G81.91 Hemiplegia, unspecified affecting right dominant side; I10 Essential (primary) hypertension

== ENCOUNTER → 2018-08-20 | Outpatient (CLI) | payer OTHER ==
[2018-08-20 10:00] LABS: ALBUMIN 3.5 g/dL (3.4-5.0); CALCIUM 9.7 mg/dL (8.5-10.1); CREATININE 1.1 mg/dL (0.7-1.3); PHOSPHORUS 3.9 mg/dL (2.5-4.9); POTASSIUM 4.2 mmol/L (3.5-5.1)
== END ==
LOC: MRI 09:16
PROVIDERS: Psychiatry & Neurology Neuromuscular Medicine
DX: I10 Essential (primary) hypertension (principal); G81.91 Hemiplegia, unspecified affecting right dominant side; I63.9 Cerebral infarction, unspecified

== ENCOUNTER → 2018-09-04 | Outpatient (CLI) | payer OTHER ==
--- NOTE | 2018-09-04 10:03 | 2DMMODE ---
[facility] [place] [address] 2 D/M-MODE ECHOCARDIOGRAM Name: JENN BASURTO Room #: REG [facility]#: [id number] ������������� Admission: 09/04/18 ������������� Attend Phys: Beni Mo Discharge: ��� ������������� ��� Date of : 55 Date of Service: 09/04/18 1003 �� Report #: [id number] �������� ��������������������������������������������[id number] THIS REPORT FOR: //name// APPROVED REPORT Study performed: 09/04/2018 09:05:09 EXAM: Comprehensive 2D, Doppler, and color-flow Echocardiogram Patient Location: Out-Patient Room #: Echo lab 2 Status: routine BSA: 2.37 HR: 78 bpm BP: 114/62 mmHg Rhythm: NSR Other Information Study Quality: Adequate Indications CVA/TIA Dyspnea 2D Dimensions IVSd: 9.35 (7-11mm) LVOT Diam: 24.23 (18-24mm) LVDd: 48.62 mm PWd: 8.69 (7-11mm) Ascending Ao: 33.01 (22-36mm) LVDs: 39.25 (25-40mm) Aortic Root: 31.35 mm IVC: 21.00 mm Volumes Left Atrial Volume (Systole) Single Plane 4CH: 53.54 mL Single Plane 2CH: 50.73 mL LA ESV Index: 24.00 mL/m2 Aortic Valve AoV Peak Andre.: 1.64 m/s AO Peak Gr.: 10.76 mmHg LVOT Max P.73 mmHg LVOT Max V: 0.97 m/s TIMI Vmax: 2.71 cm2 Mitral Valve E/A Ratio: 1.8 MV Decel. Time: 226.22 ms MV E Max Andre.: 1.16 m/s [facility] [address] [place] [address] 2 D/M-MODE ECHOCARDIOGRAM Name: SHERINEJENN HEATH Room #: [facility]#: [id number] ������������� Admission: 09/04/18 ������������� Attend Phys: Beni Mo Discharge: ��� ������������� ��� Date of : 55 Date of Service: 09/04/18 1003 �� Report #: [id number] �������� ��������������������������������������������[id number] MV A Andre.: 0.66 m/s MV PHT: 65.60 ms IVRT: 73.82 ms Pulmonary Valve PV Peak Andre.: 1.32 m/s PV Peak Gr.: 7.02 mmHg Pulmonary Vein P Vein S: 0.35 m/s P Vein A: 0.20 m/s P Vein D: 0.80 m/s P Vein A Dur.: 92.3 msec P Vein S/D Ratio: 0.44 Tricuspid Valve TR Peak Andre.: 3.23 m/s TR Peak Gr.: 41.80 mmHg PA Pressure: 52.00 mmHg Left Ventricle The left ventricle is normal size. There is global hypokinesis of the left ventricle. There is normal left ventricular wall thickness. Left ventricular systolic function is borderline. LVEF is 50-55%. Grade II - pseudonormal filling dynamics. Right Ventricle The right ventricle is normal size. The right ventricular systolic function is normal. Atria The left atrium size is normal. The right atrium size is normal. Aortic Valve The aortic valve is normal in structure. No aortic regurgitation is present. There is no aortic valvular stenosis. Mitral Valve The mitral valve is normal in structure. Trace mitral regurgitation. No evidence of mitral valve stenosis. Tricuspid Valve The tricuspid valve is normal in structure. There is trace tricuspid regurgitation. Estimated PAP 45mmHg There is moderate pulmonary hypertension. Pulmonic Valve The pulmonary valve is normal in structure. Trace pulmonic [address] [address] 2 D/M-MODE ECHOCARDIOGRAM Name: JENN BASURTO HEATH Room #: REG [facility] [employer]#: [id number] ������������� Admission: 09/04/18 ������������� Attend Phys: Beni Mo Discharge: ��� ������������� ��� Date of : 55 Date of Service: 09/04/18 1003 �� Report #: [id number] �������� ��������������������������������������������[id number] regurgitation. Great Vessels The aortic root is normal in size. IVC is dilated and collapses >50% with inspiration. Pericardium There is no pericardial effusion. <Conclusion> The left ventricle is normal size. There is normal left ventricular wall thickness. Left ventricular systolic function is borderline. Grade II - pseudonormal filling dynamics. The right ventricle is normal size. The right ventricular systolic function is normal. The left atrium size is normal. The right atrium size is normal. The aortic valve is normal in structure. Trace mitral regurgitation. There is trace tricuspid regurgitation. Estimated PAP 45mmHg ��������������������������������������������� <ELECTRONICALLY SIGNED> ���������������������������������������� By: Celso Wu MD ��������������������������������������������� 09/04/18 1003 1003 1003 Celso Wu MD /INF
== END ==
LOC: CV 08:47
DX: I27.20 Pulmonary hypertension, unspecified (principal); Z86.73 Personal history of transient ischemic attack (TIA), and cerebral infarction without residual deficits

== ENCOUNTER → 2018-10-24 | Outpatient (CLI) | payer OTHER | LOC: ULTRA 13:00 | DX: I65.23 Occlusion and stenosis of bilateral carotid arteries (principal); Z86.73 Personal history of transient ischemic attack (TIA), and cerebral infarction without residual deficits ==

== ENCOUNTER 2018-10-26 19:29 | Emergency (ER) | payer OTHER ==
[~2018-10-26] VITALS: Ht 180.3 cm; Wt 127.9 kg
[2018-10-26 20:32] LABS: URINE BILIRUBIN NEGATIVE (Negative); URINE BLOOD NEGATIVE (Negative); URINE CLARITY CLEAR; URINE COLOR YELLOW; URINE GLUCOSE-RANDOM* NEGATIVE (Negative); URINE KETONES NEGATIVE (Negative); URINE LEUKOCYTES NEGATIVE (Negative); URINE NITRITE NEGATIVE (Negative); URINE PROTEIN (DIPSTICK) NEGATIVE (Negative); URINE SPECIFIC GRAVITY 1.015 (1.005-1.035); URINE UROBILINOGEN 0.2 E.U./dl (0.2-1.0)
[2018-10-26 22:06] LABS: HEMATOCRIT 39.8 % (42.0-52.0); HEMOGLOBIN 13.3 gm/dL (14.0-18.0); MCH 27.4 pg (26.0-34.0); MCHC 33.4 g/dL (28.0-37.0); PLATELET COUNT 252 thou/uL (150-400); RBC 4.86 mil/uL (4.50-6.00); WBC 8.9 thou/uL (4.0-11.0)
[2018-10-26 22:12] LABS: ABSOLUTE NEUTROPHILS 5.2 thou/uL (1.4-8.2); EOSINOPHILS 6.1 % (0.0-3.0); LYMPHOCYTES 28.3 % (24.0-44.0); MONOCYTES 6.4 % (1.0-8.0); POLYS 58.2 % (36.0-66.0)
[2018-10-26 22:14] LABS: ANION GAP 9 mmol/L (7-16); BUN 13 mg/dL (7-18); CALCIUM 9.6 mg/dL (8.5-10.1); CHLORIDE 101 mmol/L (98-107); CO2 28 mmol/L (21-32); GLUCOSE 91 mg/dL (74-106); POTASSIUM 3.9 mmol/L (3.5-5.1); SODIUM 138 mmol/L (136-145)
[2018-10-26 22:24] LABS: ALBUMIN 4.4 g/dL (3.4-5.0); LIPASE 89 U/L (73-393); SGOT 28 U/L (15-37); SGPT 37 U/L (30-65); TOTAL BILIRUBIN 0.2 mg/dL (<0.1-1.0); TOTAL PROTEIN 7.8 g/dL (6.4-8.2); TROPONIN-I <0.06 ng/mL (<0.06)
[2018-10-26 22:34] LABS: AMP/METHAMP Negative (Negative); BARBITURATES Negative (Negative); BENZODIAZEPINES Negative (Negative); COCAINE Negative (Negative); METHADONE Negative (Negative); OPIATES Negative (Negative); PCP Negative (Negative)
[2018-10-27] MEDS ORDERED: TRAMADOL 50 MG50 MG PO (00:58)
[2018-10-27] MEDS ORDERED: VENTOLIN HFA 1818 GM INH (01:01)
[2018-10-27] MEDS ORDERED: ONDANSETRON ODT8 MG PO (01:01)
[2018-10-27] MEDS ORDERED: PRILOSEC OTC20 MG PO (01:01)
[2018-10-27 01:37] VITALS: BP 145/53
--- NOTE | 2018-10-28 18:38 | EKG ---
[place] [address] [facility] [place] [address] ELECTROCARDIOGRAM REPORT Name: JENN BASURTO [facility] [id number] ������������������ Admission: 10/26/18 ������������������ Attend Phys: Discharge: 10/27/18 ������������������ Date of : 55 Report #: [id number] ����������������������������������������������������������������� [id number] THIS REPORT FOR: //name// [facility] ED Test Date: 2018-10-26 Test Time: 19:35:34 Pat Name: JENN BASURTO Department: Room: Gender: M Taper Operator: JERROD : 1955 Requested By: Christophe Fonseca Order Number: [id number] MD: Raza Cardenas Measurements Intervals [place] Rate: 69 P: 47 MN: 178 QRS: 94 QRSD: 108 T: 74 QT: 420 QTc: 450 Interpretive Statements Sinus rhythm Probable left atrial enlargement Nonspecific ST-T wave changes Compared to ECG 12/06/2017 17:21:24 Significant difference Electronically Signed On 10-28-2018 18:38:12 CDT by Raza Cardenas [email or web address] ��������������������������������������������� <ELECTRONICALLY SIGNED> ���������������������������������������� By: Rzaa Carednas MD ��������������������������������������������� 10/28/18 1838 34 34 Raza Cardenas MD /EPI
== END 2018-10-27 01:51 | disposition home or self-care (01) ==
LOC: ER 19:29
PROVIDERS: Emergency Medicine
DX: R10.30 Lower abdominal pain, unspecified (principal); R06.02 Shortness of breath; F17.210 Nicotine dependence, cigarettes, uncomplicated; G89.29 Other chronic pain; I11.0 Hypertensive heart disease with heart failure; I50.9 Heart failure, unspecified; I48.91 Unspecified atrial fibrillation; I25.2 Old myocardial infarction; Z86.718 Personal history of other venous thrombosis and embolism; Z86.73 Personal history of transient ischemic attack (TIA), and cerebral infarction without residual deficits; Z79.899 Other long term (current) drug therapy; Z95.1 Presence of aortocoronary bypass graft

== ENCOUNTER 2018-12-08 15:54 | Emergency (ER) | payer OTHER ==
[~2018-12-08] VITALS: Ht 180.3 cm; Wt 131.5 kg
[~2018-12-08 15:54] MED LIST changes: +ONDANSETRON ODT8 MG PO; +TRAMADOL 50 MG50 MG PO
[2018-12-08 16:21] LABS: ABSOLUTE NEUTROPHILS 6.1 thou/uL (1.4-8.2); BASOPHILS 0.7 % (0.0-2.0); EOSINOPHILS 4.9 % (0.0-3.0); HEMATOCRIT 40.6 % (42.0-52.0); HEMOGLOBIN 13.4 gm/dL (14.0-18.0); LYMPHOCYTES 18.2 % (24.0-44.0); MCH 27.6 pg (26.0-34.0); MCV 83.8 fL (80.0-100.0); MONOCYTES 5.1 % (1.0-8.0); PLATELET COUNT 227 thou/uL (150-400); POLYS 71.1 % (36.0-66.0); RBC 4.84 mil/uL (4.50-6.00); RDW 16.6 % (10.5-14.5); WBC 8.6 thou/uL (4.0-11.0)
[2018-12-08 16:28] LABS: ANION GAP 10 mmol/L (7-16); BUN 14 mg/dL (7-18); CHLORIDE 102 mmol/L (98-107); CO2 29 mmol/L (21-32); CREATININE 1.1 mg/dL (0.7-1.3); GLUCOSE 94 mg/dL (74-106); POTASSIUM 3.8 mmol/L (3.5-5.1); SODIUM 141 mmol/L (136-145)
[2018-12-08 16:38] LABS: SGOT 26 U/L (15-37); SGPT 36 U/L (30-65); TOTAL BILIRUBIN 0.2 mg/dL (<0.1-1.0); TOTAL PROTEIN 7.2 g/dL (6.4-8.2); TROPONIN-I <0.06 ng/mL (<0.06)
[2018-12-08 16:44] LABS: MAGNESIUM 2.2 mg/dL (1.8-2.4)
[2018-12-08 16:58] LABS: URINE BILIRUBIN NEGATIVE (Negative); URINE BLOOD NEGATIVE (Negative); URINE CLARITY CLEAR; URINE COLOR YELLOW; URINE GLUCOSE-RANDOM* NEGATIVE (Negative); URINE KETONES NEGATIVE (Negative); URINE LEUKOCYTES-REFLEX NEGATIVE (Negative); URINE NITRITE-REFLEX NEGATIVE (Negative); URINE PROTEIN (DIPSTICK) NEGATIVE (Negative); URINE SPECIFIC GRAVITY <= 1.005 (1.005-1.035); URINE UROBILINOGEN 0.2 E.U./dl (0.2-1.0)
[2018-12-08 17:21] VITALS: BP 118/53
[2018-12-08] MEDS ORDERED: NITROGLYCERIN0.4 MG SUBLING (17:31)
--- NOTE | 2018-12-09 10:53 | EKG ---
[place] [address] [employer] [place] [address] ELECTROCARDIOGRAM REPORT Name: SHERINEJENNDesiree JOE Room #: DEP [facility]#: [id number] ������������������ Admission: 12/08/18 ������������������ Attend Phys: Discharge: 12/08/18 ������������������ Date of : 55 Report #: [id number] ����������������������������������������������������������������� [id number] THIS REPORT FOR: //name// [facility] ED Test Date: 2018-12-08 Test Time: 15:54:22 Pat Name: JENN BASURTO Department: Room: Gender: M Climatology Teacher: WILLOW : 1955 Requested By: Gabi Noland Order Number: [id number] MD: Celso Wu Measurements Intervals [place] Rate: 71 P: 37 [place]: 185 QRS: 109 QRSD: 111 T: 60 QT: 453 QTc: 493 Interpretive Statements Sinus rhythm Early R to S wave transition Nonspecific ST segment abnormalities Borderline prolonged QT interval Compared to ECG 10/26/2018 19:35:34 ST (T wave) deviation no longer present Electronically Signed On 12-09-2018 10:53:22 CDT by Celso Wu [email or web address] ��������������������������������������������� <ELECTRONICALLY SIGNED> ���������������������������������������� By: Celso Wu MD ��������������������������������������������� 12/09/18 1053 1554 1554 Celso Wu MD /SHANE
== END 2018-12-08 17:55 | disposition home or self-care (01) ==
LOC: ER 15:54
PROVIDERS: Emergency Medicine; Physician Assistant
DX: G62.9 Polyneuropathy, unspecified (principal); R07.89 Other chest pain; M54.9 Dorsalgia, unspecified; M54.2 Cervicalgia; G89.29 Other chronic pain; G47.30 Sleep apnea, unspecified; I10 Essential (primary) hypertension; I48.91 Unspecified atrial fibrillation; Z95.5 Presence of coronary angioplasty implant and graft; Z86.73 Personal history of transient ischemic attack (TIA), and cerebral infarction without residual deficits; Z86.718 Personal history of other venous thrombosis and embolism; Z88.8 Allergy status to other drugs, medicaments and biological substances; Z87.891 Personal history of nicotine dependence

== ENCOUNTER 2019-03-26 02:20 | Inpatient (IN) | payer OTHER ==
[~2019-03-26] VITALS: Ht 180.3 cm; Wt 136.1 kg
[2019-03-26] MEDS ORDERED: METOLAZONE 5 MG5 MG PO (02:51)
[2019-03-26] MEDS ORDERED: SYNTHROID75 MCG PO (02:52)
[2019-03-26 03:03] LABS: ABSOLUTE NEUTROPHILS 6.2 thou/uL (1.4-8.2); BASOPHILS 0.7 % (0.0-2.0); HEMATOCRIT 39.7 % (42.0-52.0); HEMOGLOBIN 13.6 gm/dL (14.0-18.0); LYMPHOCYTES 19.3 % (24.0-44.0); MCHC 34.2 g/dL (28.0-37.0); MCV 87.7 fL (80.0-100.0); MONOCYTES 9.9 % (1.0-8.0); PLATELET COUNT 203 thou/uL (150-400); POLYS 66.1 % (36.0-66.0); RBC 4.53 mil/uL (4.50-6.00); RDW 14.1 % (10.5-14.5); WBC 9.4 thou/uL (4.0-11.0)
[2019-03-26 03:18] LABS: ALBUMIN 4.4 g/dL (3.4-5.0); ANION GAP 7 mmol/L (7-16); BUN 31 mg/dL (7-18); CALCIUM 8.6 mg/dL (8.5-10.1); CHLORIDE 82 mmol/L (98-107); CO2 34 mmol/L (21-32); CREATININE 1.4 mg/dL (0.7-1.3); GLUCOSE 122 mg/dL (74-106); SGOT 23 U/L (15-37); SGPT 30 U/L (30-65); SODIUM 123 mmol/L (136-145); TOTAL BILIRUBIN 0.5 mg/dL (<0.1-1.0); TOTAL PROTEIN 7.8 g/dL (6.4-8.2); TROPONIN-I <0.06 ng/mL (<0.06)
[2019-03-26 03:20] LABS: POTASSIUM 2.4 mmol/L (3.5-5.1)
[2019-03-26 03:21] LABS: APTT 61.3 Seconds (24.5-32.8); INR 1.2; PROTIME 12.3 Seconds (9.3-11.4)
[2019-03-26 03:40] LABS: URINE BILIRUBIN NEGATIVE (Negative); URINE BLOOD NEGATIVE (Negative); URINE CLARITY CLEAR; URINE COLOR YELLOW; URINE GLUCOSE-RANDOM* NEGATIVE (Negative); URINE KETONES NEGATIVE (Negative); URINE LEUKOCYTES-REFLEX NEGATIVE (Negative); URINE NITRITE-REFLEX NEGATIVE (Negative); URINE PROTEIN (DIPSTICK) NEGATIVE (Negative); URINE SPECIFIC GRAVITY 1.015 (1.005-1.035); URINE UROBILINOGEN 0.2 E.U./dl (0.2-1.0)
--- NOTE | 2019-03-26 06:07 | NUR ---
CALLED UNIT TO GIVE REPORT. ALL NURSES BUSY. UNIT WILL CALL BACK TO ER.
--- NOTE | 2019-03-26 06:36 | NUR ---
REPORT GIVEN TO 3W RN
[2019-03-26 07:10] VITALS: BP 134/69
--- NOTE | 2019-03-26 07:35 | NUR ---
PATIENT IS A NEW ADMISSION TO THE UNIT THIS SHIFT. HE ARRIVED VIA CART FROM THE ER AND WAS TRANSFERRED TO THE BED WITHOUT INCIDENT. PATIENT IS ALERT AND MOSTLY ORIENTED AND ABLE TO PARTICIPATE IN ADMISSION PROCESS. DAY NURSE TO COMPLETE ADMISSION AND INITIATE PLAN OF CARE.
--- NOTE | 2019-03-26 08:13 | NUR ---
Nutrition: RD consult for 'diet instructions.' Pt newly admitted to acute care unit ~30 mins ago. Admit: AMS, abdominal pain. Per ED notes, pt confused and unable to elaborate on current complaints - not at baseline. No active diet order yet at this time. Note hx of hemmorhagic stroke in 2016, hx expressive aphasia, [place], seizure disorder. At current entered weight of 300#, pt with BMI 41.8 kg/m2 and extreme class III obesity. Given current acuity of illness, will check back for diet education appropriateness later this date, or follow up again on 03/28.
[2019-03-26 09:06] LABS: CREATININE 1.1 mg/dL (0.7-1.3); MAGNESIUM 1.6 mg/dL (1.8-2.4)
--- NOTE | 2019-03-26 11:41 | NUR ---
pt up in recliner chair, bilat lower legs elevated. pt is a & x 3 with some forgetfulness, pleasant and able to make his needs know. intro to cm, and transition of care. " live home with , have about 9 steps with hand rail. set up medication and helps me dress. take btx at home. have cane and use shower bench, don't drive cause right arm"/arabella. pt had hx of stroke, ivc flitter, mi, seizure and dvt. pt getting ready to have btx from resp therapy. cm visited with tiera via phone call " hope can go home tomorrow if ready he going to met new dr at [facility] because [facility] [place] take [place] [facility] anymore. [facility] i work and they cook for him and have transportation for him. he uses cpap and btx at home. thank you for calling going to religious then will be up to visit"/ tiera. no anticipated needs, will cont following as needed.
[2019-03-26 13:01] LABS: TSH 3.074 uIU/mL (0.358-3.740)
[2019-03-26 15:38] VITALS: BP 137/73
[2019-03-26 19:40] VITALS: BP 126/65
[2019-03-26] MEDS ORDERED: FUROSEMIDE 20 M20 MG PO (20:00)
[2019-03-26] MEDS ORDERED: KEPPRA1000 MG PO (20:05)
[2019-03-27 04:09] VITALS: BP 126/73
--- NOTE | 2019-03-27 04:34 | NUR ---
PATIENT IS ALERT AND ORIENTED. PATIENT HAS A SLUR FROM PREVIOUS CVA. PATIENT IS ON RA. 1LNC PRN PER COMFORT. PATIENT IS UP TIMES ONE WITH CANE. PATEINT HAS RT SIDED WEAKNESS FROM OLD CVA. PATIENTS LBM WAS THE 24TH. PATIENT DENIES PAIN. BEDSIDE ABDOMINAL DISCOMFORT. PATIENT IS RESTING COMFORTABLY IN BED. WCM
[2019-03-27 06:05] LABS: BASOPHILS 0.8 % (0.0-2.0); EOSINOPHILS 4.6 % (0.0-3.0); HEMATOCRIT 38.7 % (42.0-52.0); HEMOGLOBIN 13.3 gm/dL (14.0-18.0); LYMPHOCYTES 14.1 % (24.0-44.0); MCH 30.3 pg (26.0-34.0); MCHC 34.4 g/dL (28.0-37.0); MCV 88.3 fL (80.0-100.0); MONOCYTES 10.5 % (1.0-8.0); PLATELET COUNT 189 thou/uL (150-400); RBC 4.38 mil/uL (4.50-6.00); RDW 13.7 % (10.5-14.5); WBC 8.5 thou/uL (4.0-11.0)
[2019-03-27 06:25] LABS: CALCIUM 8.9 mg/dL (8.5-10.1); MAGNESIUM 2.6 mg/dL (1.8-2.4)
[2019-03-27 07:42] VITALS: BP 122/64
[2019-03-27 10:12] VITALS: BP 122/64
--- NOTE | 2019-03-27 11:52 | NUR ---
Assumed patient care at 0715. Patient's vital signs have been stable; he denies pain. Patient continues to be compliant with his medications. Sinus Rythym is normal. stayed all night and has been at bed side. Discharge Instructions provided to patient after he verbalized an understanding of all education and signed appropriate paperwork. Patient leaving with and all personal property brought to Hospital via wheelchair at this time.
--- NOTE | 2019-03-29 14:52 | EKG ---
[place] [address] [facility] [place] [address] ELECTROCARDIOGRAM REPORT Name: JENN BASURTO Room #: 351-P [facility] IN M.R.#: [id number] Admission: 03/26/19 Attend Phys: Tianna Tolentino Discharge: 03/27/19 Date of : 55 Report #: [id number] THIS REPORT FOR: //name// [facility] ED Test Date: 2019-03-26 Test Time: 02:26:33 Pat Name: JENN BASURTO Department: Room: [facility] Gender: M Coke Drawer Hand: DONNY : 1955 Requested By: Chris Hanks Order Number: [id number] MD: Angelo Gaffney Measurements Intervals [place] Rate: 69 P: MD: QRS: 66 QRSD: 133 T: 49 QT: 503 QTc: 539 Interpretive Statements sinus rhythm Probable left ventricular hypertrophy Compared to ECG 12/08/2018 15:54:22 Sinus rhythm no longer present Electronically Signed On 03-29-2019 14:51:37 RESERVOIR ENGINEER by Angelo Gaffney [email or web address] <ELECTRONICALLY SIGNED> By: Angelo Gaffney MD 03/29/19 1451 5 5 Angelo Gaffney MD /SHANE
== END 2019-03-27 12:13 | disposition home or self-care (01) | DRG 683 ==
LOC: ER 02:20 → EROBS 05:08 → 3W 06:37
PROVIDERS: Emergency Medicine; Nurse Practitioner; ADMIT Hospitalist
DX: N17.9 Acute kidney failure, unspecified (principal); I50.32 Chronic diastolic (congestive) heart failure; I69.351 Hemiplegia and hemiparesis following cerebral infarction affecting right dominant side; E87.1 Hypo-osmolality and hyponatremia; E87.6 Hypokalemia; G89.29 Other chronic pain; M54.9 Dorsalgia, unspecified; G43.909 Migraine, unspecified, not intractable, without status migrainosus; I11.0 Hypertensive heart disease with heart failure; I48.91 Unspecified atrial fibrillation; E78.5 Hyperlipidemia, unspecified; I25.10 Atherosclerotic heart disease of native coronary artery without angina pectoris; E87.8 Other disorders of electrolyte and fluid balance, not elsewhere classified; R94.31 Abnormal electrocardiogram [ECG] [EKG]; I25.2 Old myocardial infarction; Z86.718 Personal history of other venous thrombosis and embolism; Z79.899 Other long term (current) drug therapy; Z79.01 Long term (current) use of anticoagulants; Z95.1 Presence of aortocoronary bypass graft; Z87.01 Personal history of pneumonia (recurrent); Z79.51 Long term (current) use of inhaled steroids; Z88.1 Allergy status to other antibiotic agents; Z82.49 Family history of ischemic heart disease and other diseases of the circulatory system; Z82.0 Family history of epilepsy and other diseases of the nervous system; Z87.891 Personal history of nicotine dependence
CPT/HCPCS: 10879

== ENCOUNTER → 2019-04-26 | Outpatient (CLI) | payer OTHER ==
[~2019-04-26] MED LIST changes: +FUROSEMIDE 20 M20 MG PO; +KEPPRA1000 MG PO; +METOLAZONE 5 MG5 MG PO; +SYNTHROID100 MC1 PO; +SYNTHROID75 MCG PO
== END ==
LOC: SJCVC 12:34
DX: R94.31 Abnormal electrocardiogram [ECG] [EKG] (principal); I11.0 Hypertensive heart disease with heart failure; I50.20 Unspecified systolic (congestive) heart failure; I25.5 Ischemic cardiomyopathy; I48.0 Paroxysmal atrial fibrillation; I63.9 Cerebral infarction, unspecified; I73.9 Peripheral vascular disease, unspecified; K21.9 Gastro-esophageal reflux disease without esophagitis; J44.9 Chronic obstructive pulmonary disease, unspecified

== ENCOUNTER 2019-05-25 15:57 | Emergency (ER) | payer OTHER ==
[~2019-05-25] VITALS: Ht 180.3 cm; Wt 141.1 kg
[~2019-05-25 15:57] MED LIST changes: -SYNTHROID100 MC1 PO
[2019-05-25] MEDS ORDERED: SYNTHROID100 MC1 PO (16:24)
[2019-05-25] MEDS ORDERED: TRAMADOL 50 MG50 MG PO (16:42)
[2019-05-25] MEDS ORDERED: NORFLEX100 MG PO (16:42)
[2019-05-25 17:00] VITALS: BP 124/53
== END 2019-05-25 17:05 | disposition home or self-care (01) ==
LOC: ER 15:57
DX: M54.5 Low back pain (principal); I11.0 Hypertensive heart disease with heart failure; I50.9 Heart failure, unspecified; I48.91 Unspecified atrial fibrillation; G47.30 Sleep apnea, unspecified; Z86.718 Personal history of other venous thrombosis and embolism; Z87.442 Personal history of urinary calculi; Z87.891 Personal history of nicotine dependence; Z88.8 Allergy status to other drugs, medicaments and biological substances

== ENCOUNTER 2019-06-07 22:16 | Emergency (ER) | payer OTHER ==
[~2019-06-07] VITALS: Ht 180.3 cm; Wt 141.5 kg
[~2019-06-07 22:16] MED LIST changes: +SYNTHROID100 MC1 PO
[2019-06-07 22:41] LABS: URINE BILIRUBIN NEGATIVE (Negative); URINE BLOOD NEGATIVE (Negative); URINE CLARITY CLEAR; URINE COLOR YELLOW; URINE GLUCOSE-RANDOM* NEGATIVE (Negative); URINE KETONES NEGATIVE (Negative); URINE LEUKOCYTES-REFLEX NEGATIVE (Negative); URINE NITRITE-REFLEX NEGATIVE (Negative); URINE PROTEIN (DIPSTICK) NEGATIVE (Negative); URINE UROBILINOGEN 0.2 E.U./dl (0.2-1.0)
[2019-06-07 22:53] LABS: ABSOLUTE NEUTROPHILS 4.2 thou/uL (1.4-8.2); BASOPHILS 0.9 % (0.0-2.0); EOSINOPHILS 5.2 % (0.0-3.0); HEMATOCRIT 36.9 % (42.0-52.0); HEMOGLOBIN 12.4 gm/dL (14.0-18.0); LYMPHOCYTES 25.5 % (24.0-44.0); MCH 30.4 pg (26.0-34.0); MCHC 33.6 g/dL (28.0-37.0); MCV 90.7 fL (80.0-100.0); MONOCYTES 7.4 % (1.0-8.0); PLATELET COUNT 203 thou/uL (150-400); RBC 4.07 mil/uL (4.50-6.00); RDW 14.2 % (10.5-14.5); WBC 6.9 thou/uL (4.0-11.0)
[2019-06-07 23:01] LABS: CALCIUM 8.3 mg/dL (8.5-10.1); CREATININE 1.3 mg/dL (0.7-1.3); MAGNESIUM 2.4 mg/dL (1.8-2.4); POTASSIUM 3.5 mmol/L (3.5-5.1)
[2019-06-07 23:54] VITALS: BP 117/56
== END 2019-06-07 23:30 | disposition home or self-care (01) ==
LOC: ER 22:16
PROVIDERS: Emergency Medicine
DX: N48.83 Acquired buried penis (principal); R60.0 Localized edema; G89.29 Other chronic pain; G47.30 Sleep apnea, unspecified; I48.91 Unspecified atrial fibrillation; I11.0 Hypertensive heart disease with heart failure; I50.9 Heart failure, unspecified; Z88.6 Allergy status to analgesic agent; Z88.1 Allergy status to other antibiotic agents; Z88.8 Allergy status to other drugs, medicaments and biological substances; Z95.1 Presence of aortocoronary bypass graft; Z86.718 Personal history of other venous thrombosis and embolism

== ENCOUNTER → 2019-10-31 | Outpatient (CLI) | payer OTHER | LOC: SJCVCIMAG 09:27 | PROVIDERS: ATTEND Internal Medicine | DX: I65.23 Occlusion and stenosis of bilateral carotid arteries (principal); I25.5 Ischemic cardiomyopathy; I11.0 Hypertensive heart disease with heart failure; I50.20 Unspecified systolic (congestive) heart failure; I48.0 Paroxysmal atrial fibrillation; E78.5 Hyperlipidemia, unspecified; Z95.1 Presence of aortocoronary bypass graft; Z79.899 Other long term (current) drug therapy ==

== ENCOUNTER → 2020-01-24 | Outpatient (CLI) | payer OTHER | LOC: CAT 10:37 | PROVIDERS: ATTEND Pediatrics | DX: Z12.2 Encounter for screening for malignant neoplasm of respiratory organs (principal); I25.10 Atherosclerotic heart disease of native coronary artery without angina pectoris; J98.11 Atelectasis; Z87.891 Personal history of nicotine dependence ==

== ENCOUNTER 2020-05-22 12:10 | Emergency (ER) | payer OTHER ==
[~2020-05-22] VITALS: Ht 180.3 cm; Wt 151.5 kg
--- NOTE | 2020-05-22 12:40 | EKG ---
[address] [address] ELECTROCARDIOGRAM REPORT Name: JENN BASURTO Room #: [facility].#: [id number] Admission: Attend Phys: Discharge: Date of : 55 Report #: [id number] [facility] ED Test Date: 2020-05-22 Test Time: 12:16:17 Pat Name: JENN BASURTO Department: Room: Gender: It Security Engineer: BABATUNDE : 1955 Requested By: Ben Catalan Order Number: [id number] MD: Angelo Gaffney Measurements Intervals [place] Rate: 68 P: 54 MO: 195 QRS: 53 QRSD: 108 T: 79 QT: 443 QTc: 472 Interpretive Statements Sinus rhythm Compared to ECG 03/26/2019 02:26:33 No significant changes Electronically Signed On 05-22-2020 12:40:11 [employer] by Angelo Gaffney [email or web address] <ELECTRONICALLY SIGNED> By: Angelo Gaffney MD 05/22/20 1240 1216 1216 Angelo Gaffney MD /EPI
[2020-05-22 12:44] LABS: ABSOLUTE NEUTROPHILS 4.2 thou/uL (1.4-8.2); BASOPHILS 0.9 % (0.0-2.0); EOSINOPHILS 5.4 % (0.0-3.0); HEMOGLOBIN 11.8 gm/dL (14.0-18.0); MCH 30.2 pg (26.0-34.0); MCHC 32.9 g/dL (28.0-37.0); MCV 91.7 fL (80.0-100.0); MONOCYTES 7.6 % (1.0-8.0); PLATELET COUNT 197 thou/uL (150-400); POLYS 69.1 % (36.0-66.0); RBC 3.92 mil/uL (4.50-6.00); RDW 15.2 % (10.5-14.5); WBC 6.1 thou/uL (4.0-11.0)
[2020-05-22 13:00] LABS: ANION GAP 9 mmol/L (7-16); BUN 10 mg/dL (7-18); CALCIUM 9.3 mg/dL (8.5-10.1); CHLORIDE 105 mmol/L (98-107); CO2 27 mmol/L (21-32); CREATININE 1.1 mg/dL (0.7-1.3); GLUCOSE 104 mg/dL (74-106); POTASSIUM 4.6 mmol/L (3.5-5.1); SODIUM 141 mmol/L (136-145)
[2020-05-22 13:09] LABS: TROPONIN-I <0.06 ng/mL (<0.06)
[2020-05-22 16:32] VITALS: BP 113/55
== END 2020-05-22 16:45 | disposition home or self-care (01) ==
LOC: ER 12:10
PROVIDERS: Nurse Practitioner
DX: R07.9 Chest pain, unspecified (principal); R60.9 Edema, unspecified; I11.0 Hypertensive heart disease with heart failure; I50.9 Heart failure, unspecified; I48.91 Unspecified atrial fibrillation; Z95.1 Presence of aortocoronary bypass graft; Z79.899 Other long term (current) drug therapy; Z87.891 Personal history of nicotine dependence; Z88.8 Allergy status to other drugs, medicaments and biological substances

== ENCOUNTER 2020-09-10 21:21 | Emergency (ER) | payer OTHER ==
[~2020-09-10] VITALS: Ht 180.3 cm; Wt 149.7 kg
[2020-09-10 22:02] LABS: ABSOLUTE NEUTROPHILS 5.7 thou/uL (1.4-8.2); HEMATOCRIT 37.2 % (42.0-52.0); HEMOGLOBIN 12.4 gm/dL (14.0-18.0); LYMPHOCYTES 20.1 % (24.0-44.0); MCH 29.9 pg (26.0-34.0); MCHC 33.4 g/dL (28.0-37.0); MCV 89.4 fL (80.0-100.0); MONOCYTES 7.8 % (1.0-8.0); PLATELET COUNT 224 thou/uL (150-400); POLYS 67.1 % (36.0-66.0); RBC 4.16 mil/uL (4.50-6.00); RDW 15.2 % (10.5-14.5); WBC 8.5 thou/uL (4.0-11.0)
[2020-09-10 22:07] LABS: ANION GAP 11 mmol/L (7-16); BUN 17 mg/dL (7-18); CALCIUM 8.4 mg/dL (8.5-10.1); CHLORIDE 100 mmol/L (98-107); CO2 29 mmol/L (21-32); CREATININE 1.3 mg/dL (0.7-1.3); GLUCOSE 142 mg/dL (74-106); POTASSIUM 3.2 mmol/L (3.5-5.1); SODIUM 140 mmol/L (136-145)
[2020-09-10 22:15] LABS: APTT 31.9 Seconds (24.5-32.8); INR 1.09; PROTIME 11.8 Seconds (10.5-12.1)
[2020-09-10 22:17] LABS: ALBUMIN 3.8 g/dL (3.4-5.0); SGOT 18 U/L (15-37); SGPT 33 U/L (30-65); TOTAL BILIRUBIN 0.3 mg/dL (0.2-1.0); TOTAL PROTEIN 6.8 g/dL (6.4-8.2); TROPONIN-I <0.06 ng/mL (<0.06)
[2020-09-10 22:48] LABS: HCO3 26.1 mmol/L (22.0-26.0); PCO2 39.1 mmHg (35.0-45.0); PO2 72.5 mmHg (80.0-100.0); pH 7.443 (7.360-7.450); sO2 95.2 % (92.0-98.0)
[2020-09-11] MEDS ORDERED: PREDNISONE 10 M10 MG PO (00:18)
[2020-09-11 00:45] VITALS: BP 116/46
--- NOTE | 2020-09-11 07:06 | EKG ---
[place] [address] [facility] [place] [address] ELECTROCARDIOGRAM REPORT Name: SHERINEKARENDesiree JOE [facility] #: [facility]P [facility] [id number] Admission: 09/10/20 Attend Phys: Discharge: 09/11/20 Date of : 55 Report #: [id number] [facility] ED Test Date: 2020-09-10 Test Time: 21:27:56 Pat Name: JENN BASURTO Department: Room: Gender: M Chief Nurse: SATYA : 1955 Requested By: Michael Patel Order Number: [id number] MD: Mike Clemens Measurements Intervals [place] Rate: 79 P: 40 TN: 182 QRS: 85 QRSD: 118 T: 71 QT: 404 QTc: 464 Interpretive Statements Sinus rhythm Nonspecific intraventricular conduction delay Borderline repolarization abnormality Compared to ECG 05/22/2020 12:16:17 Intraventricular conduction delay now present Electronically Signed On 09-11-2020 7:05:51 CDT by Mike Clemens [email or web address] <ELECTRONICALLY SIGNED> By: Mike Clemens MD, [facility] 09/11/20704 2127 26 Mike Clemens MD, FACC /EPI
== END 2020-09-11 00:47 | disposition home or self-care (01) ==
LOC: ER 21:21
PROVIDERS: Emergency Medicine
DX: J44.1 Chronic obstructive pulmonary disease with (acute) exacerbation (principal); G89.29 Other chronic pain; I11.0 Hypertensive heart disease with heart failure; I50.9 Heart failure, unspecified; I48.91 Unspecified atrial fibrillation; Z86.718 Personal history of other venous thrombosis and embolism; Z88.5 Allergy status to narcotic agent; Z88.8 Allergy status to other drugs, medicaments and biological substances; Z87.891 Personal history of nicotine dependence

== ENCOUNTER 2020-09-25 22:34 | Emergency (ER) | payer OTHER ==
[~2020-09-25] VITALS: Ht 180.3 cm; Wt 152.0 kg
[~2020-09-25 22:34] MED LIST changes: +PREDNISONE 10 M10 MG PO
[2020-09-25] MEDS ORDERED: TORSEMIDE20 MG PO (23:12)
[2020-09-26 00:01] LABS: ABSOLUTE NEUTROPHILS 6.8 thou/uL (1.4-8.2); BASOPHILS 0.9 % (0.0-2.0); EOSINOPHILS 2.2 % (0.0-3.0); HEMATOCRIT 37.3 % (42.0-52.0); HEMOGLOBIN 12.5 gm/dL (14.0-18.0); LYMPHOCYTES 16.8 % (24.0-44.0); MCH 30.3 pg (26.0-34.0); MCHC 33.6 g/dL (28.0-37.0); MCV 90.3 fL (80.0-100.0); PLATELET COUNT 207 thou/uL (150-400); POLYS 73.1 % (36.0-66.0); RBC 4.13 mil/uL (4.50-6.00); WBC 9.2 thou/uL (4.0-11.0)
[2020-09-26 00:05] LABS: CALCIUM 8.6 mg/dL (8.5-10.1); CREATININE 1.4 mg/dL (0.7-1.3); POTASSIUM 3.2 mmol/L (3.5-5.1)
[2020-09-26 00:10] LABS: ALBUMIN 3.7 g/dL (3.4-5.0); TOTAL BILIRUBIN 0.3 mg/dL (0.2-1.0); TOTAL PROTEIN 6.8 g/dL (6.4-8.2)
[2020-09-26 02:15] VITALS: BP 132/66
== END 2020-09-26 02:15 | disposition home or self-care (01) ==
LOC: ER 22:34
PROVIDERS: Emergency Medicine
DX: R60.0 Localized edema (principal); N48.83 Acquired buried penis; G89.29 Other chronic pain; I11.0 Hypertensive heart disease with heart failure; I50.9 Heart failure, unspecified; I48.91 Unspecified atrial fibrillation; F17.210 Nicotine dependence, cigarettes, uncomplicated; Z98.890 Other specified postprocedural states; Z95.1 Presence of aortocoronary bypass graft; Z88.1 Allergy status to other antibiotic agents; Z88.8 Allergy status to other drugs, medicaments and biological substances

== ENCOUNTER 2020-10-01 14:52 | Inpatient (IN) | payer OTHER ==
[~2020-10-01] VITALS: Ht 180.3 cm; Wt 147.4 kg
[~2020-10-01 14:52] MED LIST changes: +TORSEMIDE20 MG PO
[2020-10-01 14:57] VITALS: BP 147/58
[2020-10-01 15:30] LABS: ABSOLUTE NEUTROPHILS 5.7 thou/uL (1.4-8.2); BASOPHILS 0.8 % (0.0-2.0); HEMATOCRIT 36.7 % (42.0-52.0); HEMOGLOBIN 12.5 gm/dL (14.0-18.0); LYMPHOCYTES 16.6 % (24.0-44.0); MCH 30.4 pg (26.0-34.0); MCV 89.5 fL (80.0-100.0); MONOCYTES 6.2 % (1.0-8.0); PLATELET COUNT 209 thou/uL (150-400); POLYS 73.4 % (36.0-66.0); RDW 15.1 % (10.5-14.5); WBC 7.8 thou/uL (4.0-11.0)
[2020-10-01] MEDS ORDERED: ASA81BEC PO (15:38)
--- NOTE | 2020-10-01 15:47 | EKG ---
[place] [address] [facility] [employer] [place] [address] ELECTROCARDIOGRAM REPORT Name: SHERINEJENN HEATH Room #: REG [facility].#: [id number] Admission: 10/01/20 Attend Phys: Discharge: Date of : 55 Report #: [id number] [facility] ED Test Date: 2020-10-01 Test Time: 15:29:44 Pat Name: JENN BASURTO Department: Room: Gender: M Garment Manufacturer: LUCIEN : 1955 Requested By: Ben Catalan Order Number: [id number] MD: Mike Clemens Measurements Intervals [place] Rate: 71 P: 9 [place]: 202 QRS: 51 QRSD: 121 T: 71 QT: 426 QTc: 463 Interpretive Statements Sinus rhythm Nonspecific intraventricular conduction delay Borderline repolarization abnormality Compared to ECG 09/10/2020 21:27:56 No significant changes Electronically Signed On 10-01-2020 15:47:29 CDT by Mike Clemens [email or web address] <ELECTRONICALLY SIGNED> By: Mike Clemens MD, [facility] 10/01/20 1547 1529 1529 Mike Clemens MD, FACC /EPI
[2020-10-01 15:51] LABS: ANION GAP 14 mmol/L (7-16); BUN 16 mg/dL (7-18); CALCIUM 8.5 mg/dL (8.5-10.1); CHLORIDE 103 mmol/L (98-107); CO2 26 mmol/L (21-32); CREATININE 1.4 mg/dL (0.7-1.3); GLUCOSE 135 mg/dL (74-106); POTASSIUM 3.6 mmol/L (3.5-5.1); SODIUM 143 mmol/L (136-145)
[2020-10-01 16:00] LABS: SGOT 21 U/L (15-37); SGPT 36 U/L (16-63); TOTAL BILIRUBIN 0.2 mg/dL (0.2-1.0); TOTAL PROTEIN 6.8 g/dL (6.4-8.2); TROPONIN-I <0.06 ng/mL (<0.06)
[2020-10-01 18:04] VITALS: BP 127/76
[2020-10-01 18:24] VITALS: BP 131/76
[2020-10-01 18:50] VITALS: BP 130/51
[2020-10-01 20:05] VITALS: BP 129/53
[2020-10-02 00:44] VITALS: BP 129/63
--- NOTE | 2020-10-02 01:19 | NUR ---
PATIENT IS A NEW ADMISSION TO THE UNIT THIS SHIFT. HE ARRIVED VIA CART FROM THE ER AND WAS ABLE TO AMBULATE TO THE BED WITH ASSISTANCE. PATIENT IS FULLY ALERT AND ORIENTED AND ABLE TO CALL APPROPRIATELY FOR NEEDS. PATIENT HAS CVA RESIDUAL IN PRONOUNCED RIGHT SIDED WEAKNESS AND EXPRESSIVE APHASIA. NURSE TO COMPLETE ADMISSION AND INITIATE PLAN OF CARE.
[2020-10-02 04:46] VITALS: BP 122/58
[2020-10-02 06:03] LABS: ALBUMIN 3.4 g/dL (3.4-5.0); CALCIUM 8.3 mg/dL (8.5-10.1); CREATININE 1.4 mg/dL (0.7-1.3); PHOSPHORUS 3.8 mg/dL (2.6-4.7); POTASSIUM 3.1 mmol/L (3.5-5.1)
[2020-10-02 07:09] LABS: PROT/CREAT RATIO 0.1; URINE CREATININE-RANDOM* 126.5 mg/dL
[2020-10-02 07:16] LABS: URINE BILIRUBIN NEGATIVE (Negative); URINE BLOOD NEGATIVE (Negative); URINE CLARITY CLEAR; URINE COLOR YELLOW; URINE GLUCOSE-RANDOM* NEGATIVE (Negative); URINE KETONES NEGATIVE (Negative); URINE LEUKOCYTES NEGATIVE (Negative); URINE NITRITE NEGATIVE (Negative); URINE PROTEIN (DIPSTICK) NEGATIVE (Negative); URINE UROBILINOGEN 0.2 E.U./dl (0.2-1.0)
[2020-10-02 07:31] LABS: BE(vivo) 0.2 mmol/L (-2 to +3); HCO3 24.2 mmol/L (22.0-26.0); PCO2 37.1 mmHg (35.0-45.0); PO2 73.5 mmHg (80.0-100.0); pH 7.432 (7.360-7.450); sO2 95.3 % (92.0-98.0)
[2020-10-02 07:59] VITALS: BP 118/58
--- NOTE | 2020-10-02 12:48 | 2DMMODE ---
[facility] [place] [address] 2 D/M-MODE ECHOCARDIOGRAM Name: JENN BASURTO HEATH Room #: 218-P ADM IN M.R.#: [id number] Admission: 10/01/20 Attend Phys: Odell Castanon MD Discharge: Date of : 55 Report #: [id number] THIS REPORT FOR: cc: Diogo Taylor MD, Jeremy C. MD Lundgren, Craig H. MD [facility] ~ APPROVED REPORT Study performed: 10/02/2020 11:02:50 EXAM: Comprehensive 2D, Doppler, and color-flow Echocardiogram Patient Location: Bedside Room #: 218 Status: routine BSA: 2.64 HR: 66 bpm BP: 118/58 mmHg Rhythm: NSR Other Information Study Quality: Adequate Indications Congestive Heart Failure COPD Dyspnea CAD Cardiomyopathy Hypertension/HDD 2D Dimensions IVSd: 8.23 (7-11mm) LVDd: 58.46 mm PWd: 9.18 (7-11mm) Ascending Ao: 31.38 (22-36mm) LVDs: 44.06 (25-40mm) Left Atrium: 41.32 (27-40mm) Aortic Root: 33.92 mm Volumes Left Atrial Volume (Systole) Single Plane 4CH: 66.17 mL Single Plane 2CH: 47.72 mL LA ESV Index: 25.00 mL/m2 Aortic Valve [facility] [address] [place] [address] 2 D/M-MODE ECHOCARDIOGRAM Name: JENN BASURTO Room #: 218-P [facility] IN ..#: [id number] Admission: 10/01/20 Attend Phys: Odell Castanon, Discharge: Date of : 55 Report #: [id number] AoV Peak Andre.: 1.47 m/s AO Peak Gr.: 8.70 mmHg LVOT Max P.54 mmHg LVOT Max V: 1.07 m/s Mitral Valve E/A Ratio: 1.6 MV Decel. Time: 243.79 ms MV E Max Andre.: 1.07 m/s MV A Andre.: 0.68 m/s MV PHT: 70.70 ms IVRT: 83.04 ms Pulmonary Valve PV Peak Andre.: 1.04 m/s PV Peak Gr.: 4.36 mmHg Pulmonary Vein P Vein S: 0.31 m/s P Vein A: 0.19 m/s P Vein D: 0.53 m/s P Vein A Dur.: 106.1 msec P Vein S/D Ratio: 0.58 Left Ventricle The left ventricle is normal size. There is normal LV segmental wall motion. There is normal left ventricular wall thickness. The left ventricular systolic function is normal. The left ventricular ejection fraction is within the normal range. LVEF is 50-55%. The left ventricular diastolic function is normal. Right Ventricle The right ventricle is normal size. The right ventricular systolic function is normal. Atria The left atrium size is normal. The right atrium size is normal. Aortic Valve The aortic valve is normal in structure. No aortic regurgitation is present. There is no aortic valvular stenosis. Mitral Valve The mitral valve is normal in structure. Mild mitral regurgitation. No evidence of mitral valve stenosis. Tricuspid Valve The tricuspid valve is normal in structure. There is no tricuspid valve regurgitation noted. [facility] [place] [address] 2 D/M-MODE ECHOCARDIOGRAM Name: JENN BASURTO [place] Room #: 218-P ADM IN M.R.#: [id number] Admission: 10/01/20 Attend Phys: Odell Castanon, Discharge: Date of : 55 Report #: [id number] Pulmonic Valve The pulmonary valve is normal in structure. There is no pulmonic valvular regurgitation. Great Vessels The aortic root is normal in size. IVC is not well visualized. Pericardium There is no pericardial effusion. <Conclusion> The left ventricular systolic function is normal. There is normal LV segmental wall motion. LVEF is 50-55%. The aortic valve is normal in structure. No aortic regurgitation or stenosis The mitral valve is normal in structure. Mild mitral regurgitation. Pulmonary artery pressure could not be reliably ascertained There is no pericardial effusion. <ELECTRONICALLY SIGNED> By: John Alatorre MD, FACC 07/02/21 1248 1248 1248 John Alatorre MD, [facility] /INF
--- NOTE | 2020-10-02 14:15 | NUR ---
Nutrition: Pt seen due to consult received stating obesity. BMI 48, extreme class 3 obesity. PMH: stage 3 CKD, pulmonary HTN, CAD, CVA. Extensive anasarca and both pt/ report compliance with low sodium diet, fluids and medications at home. voices concern that pt's diuretic stopped working. Cardiology following. Current weight up 30# from usual. Eating well on renal diet. Would rec D/C renal diet and order heart healthy only (includes 2 gm Na restriction). Currently with low K+ level. BUN 21, creat 1.4. RD reviewed additional tips for weight loss. Through discussion, voices good understanding of heart healthy diet/sodium restriction/low fat/high fiber guidelines. Place as low nutrition risk.
--- NOTE | 2020-10-02 14:39 | NUR ---
Chart reviewed and case discussed with the care team. Pt admitted for fluid overload and is diuresing. He lives at home with his who over sees his care. The pt has a complex medically history including CVA, CABG, and COPD. He uses a home cpap and has all needed adaptive equipment in place at home. He uses a cane for gait and was going to adult day care while his is at work. She manages his medications, meals and f/u care. PT/OT evals pending due to stroke history. The pt's most recent hospital stay here was in Mar 2019 on acute rehab. Will follow along should dc needs arise.
[2020-10-02 15:38] VITALS: BP 131/56
--- NOTE | 2020-10-02 19:28 | NUR ---
Assumed pt care at 7am.Pt in and out of bed with assist x2.Assessment completed vss.Assisted with tray setup at all meals.Good appetite noted. here most of the time this shift assisted pt with care.Dr Castanon and Mo here,order noted.Pt has over 2000 clear yellow urine. Pt was up in chair for over 2 hours today. Good endurance noted.Fall bundle in place. Report off to noc rn.
[2020-10-02 20:13] VITALS: BP 132/57
[2020-10-03 03:30] VITALS: BP 146/64
[2020-10-03 04:21] LABS: CALCIUM 8.5 mg/dL (8.5-10.1); CREATININE 1.2 mg/dL (0.7-1.3); MAGNESIUM 2.2 mg/dL (1.8-2.4); POTASSIUM 3.7 mmol/L (3.5-5.1)
[2020-10-03 08:41] VITALS: BP 130/53
--- NOTE | 2020-10-03 08:47 | NUR ---
GET REPORT FROM CCU NURSE JOCELYNE AND WILL TRANSFER PATIENT INFO TO NURSE OLMEDO ON THE FLOOR.
[2020-10-03 12:30] LABS: CHOLESTEROL 143 mg/dL (<200); HDL CHOLESTEROL 32 mg/dL (>40); LDL CHOLESTEROL 80 mg/dL (<100); TC:HDL 4.5 Ratio (Not establshd); TRIGLYCERIDE 158 mg/dL (<150); VLDL 32 mg/dL (<40)
--- NOTE | 2020-10-03 12:59 | NUR ---
Pt transfered to floor from [facility] around 8am.Assumed pt care at 930am.Pt up in chair resting with at . Assessment completed.vss.Pt tolerated meds and diet.Dr Chaparro here,new order noted.Pt to be on 1.5liter fluid restriction per day.Physical therapist evaluate pt and recommended that pt can ambulate in hallway with or staff assist.Pt in up in chair at present resting without c/o.Will continue to monitor.
[2020-10-03 15:15] VITALS: BP 126/50
[2020-10-03 20:36] VITALS: BP 124/63
--- NOTE | 2020-10-04 04:23 | NUR ---
ASSUEMD CARE OF PT AT SHIFT CHANGE. PT IS AOX4 AND LETS NEEDS BE KNOWN. FALL PRECAUTION IN [place]. PT REPORTED SOME PAIN AND SOB. PRNS PROVIDED. LASIX IV CONTINUED. PT PLACED ON 2L O2 VIA NC FOR HS. PT IS ON FLUID RESTIRICTION. ASSESSMENT CHARTED. PT WAS ABLE TO GET COMFORTABLE AND SLEEP PART OF THE SHIFT. VSS AND NO S/S OF ACUTE DISTRESS. WILL CONTINUE TO MONITOR.
[2020-10-04 06:26] LABS: ABSOLUTE NEUTROPHILS 4.4 thou/uL (1.4-8.2); BASOPHILS 0.8 % (0.0-2.0); EOSINOPHILS 5.4 % (0.0-3.0); HEMATOCRIT 36.9 % (42.0-52.0); HEMOGLOBIN 12.4 gm/dL (14.0-18.0); LYMPHOCYTES 19.8 % (24.0-44.0); MCH 30.4 pg (26.0-34.0); MCHC 33.5 g/dL (28.0-37.0); MCV 90.8 fL (80.0-100.0); MONOCYTES 7.6 % (1.0-8.0); PLATELET COUNT 221 thou/uL (150-400); POLYS 66.4 % (36.0-66.0); RBC 4.06 mil/uL (4.50-6.00); RDW 15.1 % (10.5-14.5); WBC 6.7 thou/uL (4.0-11.0)
[2020-10-04 06:48] LABS: ALBUMIN 3.6 g/dL (3.4-5.0); ANION GAP 11 mmol/L (7-16); BUN 16 mg/dL (7-18); CALCIUM 8.6 mg/dL (8.5-10.1); CHLORIDE 102 mmol/L (98-107); CO2 27 mmol/L (21-32); CREATININE 1.2 mg/dL (0.7-1.3); DIRECT BILIRUBIN < 0.1 mg/dL (<0.1-0.2); GLUCOSE 132 mg/dL (74-106); MAGNESIUM 2.2 mg/dL (1.8-2.4); PHOSPHORUS 4.8 mg/dL (2.6-4.7); POTASSIUM 3.7 mmol/L (3.5-5.1); SGOT 15 U/L (15-37); SGPT 36 U/L (16-63); SODIUM 140 mmol/L (136-145); TOTAL BILIRUBIN 0.3 mg/dL (0.2-1.0); TOTAL PROTEIN 6.7 g/dL (6.4-8.2)
[2020-10-04 07:30] VITALS: BP 130/54
[2020-10-04 17:27] VITALS: BP 141/56
[2020-10-04 19:39] VITALS: BP 127/82
--- NOTE | 2020-10-04 19:51 | NUR ---
Assumed pt care at 7am.Pt in bed resting early this am without any c/o. Assessment completed.vss.Pt generalized edema reduced and weighs less today. Meds given as ordered with meals and well tolerated.Dr WHITT and Fitz here, order noted.Pt here later this sfternoon and stayed till around 1600. Pt has adequate urine output today.No verbal c/o at present.Will continue to monitor.
--- NOTE | 2020-10-05 04:40 | NUR ---
ASSUMED CARE OF PT AT SHIFT CHANGE. PT IS AOX3-4 AND LETS NEEDS BE KNOWN. FALL PRECAUTION IN PLACE. PT REPORTED SOME PAIN; PRNS PROVIDED. ASSESSMENT CHARTED. ABX TREATMENT CONTINUED. FLUIDS RESTRICTED. PT WAS ABLE TO GET COMFORTABLE AND SLEEP PART OF THE SHIFT. VSS AND NO S/S OF ACUTE DISTRESS. WILL CONTNUE TO MONITOR.
[2020-10-05 05:43] LABS: CALCIUM 8.7 mg/dL (8.5-10.1); CREATININE 1.1 mg/dL (0.7-1.3); MAGNESIUM 2.3 mg/dL (1.8-2.4); POTASSIUM 3.7 mmol/L (3.5-5.1)
[2020-10-05 07:59] VITALS: BP 136/60
--- NOTE | 2020-10-05 13:56 | NUR ---
Consulted d/t pt on fluid resrtiction [address] consulted 10/02 r/t low Na diet, fluids and meds at home. RD also gave tips on weight loss at that time. Both pt and present at time of visit and both voice good understanding of recommended dietary restrictions. Both have good understanding of fluid restriction and which foods can contribute to the total 1500 ml allowed including jello, soups and ice creams. Pt gets small amounts of phyical activity daily at adult day care; usually walking, but occasionally group exercises. unsure of d/c home or to rehab unit. Will follow up as needed. Low nutrition risk.
[2020-10-05 15:51] VITALS: BP 122/49
[2020-10-05 19:35] VITALS: BP 136/59
[2020-10-06 05:53] LABS: CALCIUM 8.5 mg/dL (8.5-10.1); MAGNESIUM 2.2 mg/dL (1.8-2.4)
[2020-10-06 06:03] LABS: POTASSIUM 4.4 mmol/L (3.5-5.1)
--- NOTE | 2020-10-06 07:52 | NUR ---
ASSUMED CARE OF PT AT SHIFT CHANGE. PT IS AOX4 AND LETS NEEDS BE KNOWN. FALL PRECAUTION IN PLACE. ASSESSMENT CHARTED. PT USED 2L O2 VIA NC. FLUID RESTRICTION IN PLACE. PT WAS ABLE TO GET COMFORTABLE AND SLEEP PART OF THE SHUFT. REPORT GIVEN TO ONCOMING RN.
[2020-10-06 08:17] VITALS: BP 119/59
--- NOTE | 2020-10-06 15:04 | NUR ---
PT AND FAMILY EXPRESSED INTEREST IN PT GOING TO [facility] FOR POSSIBLE SHORT TERM POST ACUTE CARE STAY UPON DC. [facility] TO ASSESS BUT THEY WON'T HAVE BEDS UNTIL TOMORROW. CM MESSAGED HOSPITALIST AND INDICATED THAT ABOVE. PT'S SPOUSE INDICATING THAT SHE IS NEEDING TO LET PT'S ADULT DAY PROGRAM KNOW IF PT WILL BE ATTENDING TOMORROW OR NOT. CM AWAITING EVAL AND RESPONSE.
[2020-10-06] MEDS ORDERED: CEFUROXIME500 MG PO (15:17)
[2020-10-06] MEDS ORDERED: TORSEMIDE20 MG PO (15:17)
[2020-10-06] MEDS ORDERED: SYNTHROID125 MC1 PO (15:17)
[2020-10-06] MEDS ORDERED: CALCIUM ACETAT667 MG PO (15:17)
[2020-10-06 21:56] VITALS: BP 136/71
[2020-10-06 22:13] VITALS: BP 150/63
--- NOTE | 2020-10-07 05:48 | NUR ---
ASSUEMD CARE OF PT AT SHIFT CHANGE. PT IS AOX4 AND LETS NEEDS BE KNOWN. FALL PREAUTION IN PLACE. PT REPORTED SOME PAIN; PRNS PROVIDED. ASSESSMENT CHARTED. FLUIDS RESTRICTED. PT PLACED ON 2L O2 VIA NC FOR HS. PT WAS ABLE TO GET COMFORTABLE AND SLEEP PART OF THE SHIFT. VSS AND NO S/S OF ACUTE DISTRESS. WILL CONTINUE TO MONITOR.
[2020-10-07 06:03] LABS: ALBUMIN 4.1 g/dL (3.4-5.0); CALCIUM 8.5 mg/dL (8.5-10.1); CREATININE 1.1 mg/dL (0.7-1.3); PHOSPHORUS 4.8 mg/dL (2.5-4.9); POTASSIUM 3.5 mmol/L (3.5-5.1)
[2020-10-07 07:52] VITALS: BP 128/74
--- NOTE | 2020-10-07 14:57 | NUR ---
PT TO DC TO [facility] THIS DAY. PT AND SPOUSE ARE AWARE AND AGREEABLE. NURSE TO CALL REPORT TO . NO OTHER CM INTERVENTION INIDCATED CASE CLOSED.
[2020-10-07 15:50] VITALS: BP 132/66
[2020-10-07 17:49] VITALS: BP 132/66
--- NOTE | 2020-10-07 19:47 | NUR ---
Patient discharged to the 5th floor room 512 rehab. His called and notified of the room change. Admitting nurse wanting IV left in place. No complaints of pain. Personal items sent with him. VSS. Tolerated diet and medications well.
== END 2020-10-07 18:19 | DRG 291 ==
LOC: ER 14:52 → EROBS 17:18 → 2N 18:27 → 4W 10-03 08:12
PROVIDERS: Hospitalist; Internal Medicine; Nurse Practitioner; ADMIT Internal Medicine; ATTEND Internal Medicine
DX: I13.0 Hypertensive heart and chronic kidney disease with heart failure and stage 1 through stage 4 chronic kidney disease, or unspecified chronic kidney disease (principal); I50.43 Acute on chronic combined systolic (congestive) and diastolic (congestive) heart failure; L03.116 Cellulitis of left lower limb; I48.20 Chronic atrial fibrillation, unspecified; I69.351 Hemiplegia and hemiparesis following cerebral infarction affecting right dominant side; Z68.42 Body mass index [BMI] 45.0-49.9, adult; G89.29 Other chronic pain; M54.9 Dorsalgia, unspecified; M54.2 Cervicalgia; G40.909 Epilepsy, unspecified, not intractable, without status epilepticus; I25.10 Atherosclerotic heart disease of native coronary artery without angina pectoris; I25.5 Ischemic cardiomyopathy; J44.9 Chronic obstructive pulmonary disease, unspecified; D64.9 Anemia, unspecified; G47.33 Obstructive sleep apnea (adult) (pediatric); E66.01 Morbid (severe) obesity due to excess calories; N18.30 Chronic kidney disease, stage 3 unspecified; I48.0 Paroxysmal atrial fibrillation; I27.20 Pulmonary hypertension, unspecified; I27.81 Cor pulmonale (chronic); E87.6 Hypokalemia; E03.9 Hypothyroidism, unspecified; I65.23 Occlusion and stenosis of bilateral carotid arteries; K59.00 Constipation, unspecified; I25.2 Old myocardial infarction; Z86.718 Personal history of other venous thrombosis and embolism; Z87.891 Personal history of nicotine dependence; Z88.8 Allergy status to other drugs, medicaments and biological substances; Z95.1 Presence of aortocoronary bypass graft; Z82.49 Family history of ischemic heart disease and other diseases of the circulatory system; Z20.822 Contact with and (suspected) exposure to COVID-19
CPT/HCPCS: 10045; 10081

== ENCOUNTER 2020-10-07 13:25 | Inpatient (IN) | payer OTHER ==
[~2020-10-07] VITALS: Ht 152.4 cm; Wt 145.3 kg
--- NOTE | ~2020-10-07 | PLAN ---
[facility] [place] [address] REHAB UNIT PLAN OF CARE Name: JENN BASURTO Room #: 512-P ADM IN M.R.#: [id number] Admission: 10/07/20 Attend Phys: Vimal Contreras MD Discharge: Date of : 55 Report #: [id number] THIS REPORT FOR: cc: Diogo Taylor MD, Jeremy C. MD Smithson, David G. MD ~ DATE OF SERVICE: 10/10/2020 PROGRESS NOTE AND OVERALL PLAN OF CARE HISTORY OF PRESENT ILLNESS: The patient has been working in therapies on the acute inpatient rehabilitation jacobson. Utilizes a CPAP at night, has lymphedema rash to bilateral lower extremities. He has been working in physical therapy with transfers at a contact guard assist level. He is ambulating up to 140 feet with a standard cane with contact guard assistance. In occupational therapy, upper body dressing is moderate assistance; lower body dressing is max assist. Speech therapy is working with him and he does have moderate cognitive deficits, mild memory deficits, moderate to severe expressive deficits. ASSESSMENT: 1. 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 2. Acute exacerbation of congestive heart failure. 3. Lower extremity cellulitis. 4. Chronic obstructive pulmonary disease with obstructive sleep apnea. 5. Ischemic cardiomyopathy. 6. Chronic kidney disease, stage 3. 7. Hypertension. 8. Hyperlipidemia. 9. Paroxysmal atrial fibrillation. PLAN: The overall plan of care is based on the pre-admit screen and information garnered from therapy assessments. 1. Estimated length of stay is probably around 10 days. 2. Medical prognosis is reasonably good. 3. Anticipated interventions includes the interdisciplinary acute inpatient rehabilitation program. 4. Anticipated functional outcomes would be for the patient to become maximally independent with mobility and ADLs as well as cognition, communication, so he can achieve a functional level where he can return back home with his . 5. Discharge destination would be back home with . 6. Expected therapy by discipline includes PT, OT and speech 1 hour per day each 5 days a week throughout the duration of the acute inpatient rehabilitation stay. ADDENDUM: The patient's prognosis for significant practical improvement within a reasonable period of time appears good. Given the patient's complex medical [facility] [address] [place] [address] REHAB UNIT PLAN OF CARE Name: JENN BASURTO [place] Room #: 512-P [facility] IN ..#: [id number] Admission: 10/07/20 Attend Phys: Vimal Contreras MD Discharge: Date of : 55 Report #: [id number] condition and risk of further medical complication, rehabilitation services could not be safely provided at a lower level of care such as a long term facility. By: [id number] Vimal Contreras MD /nt
--- NOTE | ~2020-10-07 | H ---
[facility] [place] [address] [place] [address] HISTORY AND PHYSICAL Name: JENN BASURTO Room #: 512-P ADM IN M.R.#: [id number] Admission: 10/07/20 Attend Phys: Vimal Contreras MD Discharge: Date of : 55 Report #: [id number] THIS REPORT FOR: cc: Diogo Taylor MD, Jeremy C. MD Smithson, David G. MD ~ DOC #: [id number] Vimal Contreras MD DATE OF SERVICE: 10/07/2020 HISTORY OF PRESENT ILLNESS: The patient is a 64-year-old white male who was originally admitted to [facility] on 10/01/2020 with increased weight gain of greater than 30 pounds and shortness of air. He had multiple consultants involved of Cardiology, Nephrology and Pulmonary. He was diagnosed with acute exacerbation of CHF, was given increased diuresis and responded nicely. He had some electrolyte abnormalities that were being corrected. There were concerns for lower extremity cellulitis and he was started on IV antibiotics and YU hose. He has a prior history of a CVA with residual right-sided weakness. He was noted to be at a significantly lower functional level, then his premorbid status and has now been admitted for acute in-hospital inpatient rehabilitation. His prior medical history includes the prior CVA with right-sided weakness. This was back in 2016. He is noted to have coronary artery bypass grafting in 2016, non-ST elevation MN in 2016. There is documentation of a hemorrhagic stroke in 06/2015. Seizure disorder in 12/2015. He has a history of chronic back and neck pain, sleep apnea, obesity, ITP, was seen DrRandy ____ in 2015, AFib, DVT. MEDICATIONS: Please see the full medication listing. ALLERGIES: FENTANYL, PREGABALIN, LEVOTHYROXINE. SOCIAL HISTORY: Premorbidly had been living at home with his , five stairs with handrail on the left and then another five stairs with bilateral handrails. He is left handed. Uses a single point cane. Denied falls. He was independent with most ADLs and provided most IADLs. When the goes to work, she takes the patient to an adult daycare program so that he is not left alone during the daytime. He did help somewhat his dressing premorbidly. REVIEW OF SYSTEMS: No complaints of chest pain, shortness of breath or abdominal discomfort. PHYSICAL EXAMINATION: GENERAL: On examination, the patient was seen on 10/07/2020. He was alert, pleasant. He does have significant obesity. Height 5 feet 11 inches, weight 328 pounds. VITAL SIGNS: Appeared stable. Facies were symmetric. [address] [address] HISTORY AND PHYSICAL Name: JENN BASURTO [place] Room #: 512-P [facility] IN M.R.#: [id number] Admission: 10/07/20 Attend Phys: Vimal Contreras MD Discharge: Date of : 55 Report #: [id number] HEENT: Appeared to be benign. I did not detect any obvious visual field neglect. CHEST: Sounded decreased breath sounds throughout, but otherwise sounded clear. CARDIAC: Regular rate and rhythm with occasional extra beats. ABDOMEN: Obese. Bowel sounds positive, nontender. /RECTAL: Deferred. NEUROLOGIC: He does have some dysarthric speech at times and has been decreased speech overall. EXTREMITIES: He has functional range of motion of the left upper and left lower extremity with left upper extremity automobile upholsterer intact. Very poor automobile upholsterer on the right with inability to function use the right upper extremity. Strength is probably grade 3 to 3- proximally and 2 to 3- distally. He is able to lift the right lower extremity, but appears to have weakness distally with a foot drop on the right. Bilateral lower extremity edema, hose were in place. He has been min assist for basic transfers. ASSESSMENT AND PLAN: This is a 64-year-old male with the following problem list: 1. 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 2. Acute exacerbation of congestive heart failure. 3. Lower extremity cellulitis. 4. Chronic obstructive pulmonary disease with obstructive sleep apnea. 5. Ischemic cardiomyopathy. 6. Chronic kidney disease stage III. 7. Hypertension. 8. Hyperlipidemia. 9. Paroxysmal atrial fibrillation. 10. ____ with electrolyte abnormalities. PLAN: The patient has been admitted for acute in-hospital inpatient rehabilitation. Please see the patient's previous and current functional status. As far as risk of complications, he does have multiple medical comorbidities as noted above. Initial plan of care involves the interdisciplinary acute inpatient rehabilitation program. Measurable functional goals would be for the patient to become modified independent with transfers, mobility and ADLs to at least achieve the functional status he was at prior so that he can return back home with his . Prognosis is reasonably good with estimated length of stay probably at least 10 to 14 days. Potential barriers would include his multiple medical comorbidities and decreased functional status. Vimal Contreras MD [address] [address] HISTORY AND PHYSICAL Name: JENN BASURTO [place] Room #: 512-P [facility] IN M.R.#: [id number] Admission: 10/07/20 Attend Phys: Vimal Contreras MD Discharge: Date of : 55 Report #: [id number] By: [id number] Vimal Contreras MD /nt
[~2020-10-07 13:25] MED LIST changes: +ASA81BEC PO; +CALCIUM ACETAT667 MG PO; +CEFUROXIME500 MG PO; +SYNTHROID125 MC1 PO
[2020-10-07 19:10] VITALS: BP 115/65
--- NOTE | 2020-10-08 05:03 | NUR ---
PATIENT ARRIVED ON UNIT ON PREV. SHIFT AROUND 1814 OF 10/07. AM NURSE WENT OVER CONSENT FORMS WITH PATIENT AND SIGNED THEM. ADMISSION ASSESMENT PERFORMED DURING THIS SHIFT, FURTHER EDUCATION ABOUT ROOM AND MEDICATIONS PROVIDED BEFORE ASSESMENT. PATIENT IS A&OX4, PATIENT'S SPOUSE WAS PRESENT DURING ASSESSMENT. PATIENT PRESENTS WITH EXPRESSIVE APHASIA FROM A HX OF CVA, ALSO HAS RIGHT-SIDED HEMIPARESIS. UNEQUAL STOCK PREPARER, WEAK IN RIGHT AND STRONG IN LEFT. PATIENT TRANSFERS AND AMBULATES WITH MODERATE ASSIST USING GB AND CANE. USES URINAL AT BED SIDE. BLE +2 EDEMA NOTED, CELULITIS ON RLE, AND REDNESS NOTED IN GROIN AND PENILE AREA. NYASTATIN OINTMENT HAS BEEN APPLIED TO THIS AREA. PATIENT REPORTS CHONIC LOWER BACK PAIN, AND RIGHT SIDED PAIN IN BOTH UPPER AND LOWER EXTREMITIES, WHICH HE MANAGES WITH ORAL PAIN MEDICATION AT BED TIME WHILE HE IS AT HOME. PRN HYDROCODONE WAS ADMINISTERED AT HS. EXHIBITS SHORTNESS OF BREATH AT EXERTION, AND IS ON 2L OF OXYGEN VIA NC OVERNIGHT. HE REPORTS USING A CPAP AT HOME DURING THE NIGHT, SPOUSE WAS NOTIFIED THAT SHE CAN BRING IT IN THE FOLLOWING DAY IF HE WANT TO USE IT WHILE ON THE UNIT. ASSESSMENTS ARE CHARTED, VITAL SIGNS AR STABLE, WILL CONTINUE TO MONITOR.
[2020-10-08 05:44] LABS: HEMATOCRIT 38.5 % (42.0-52.0); MCH 30.1 pg (26.0-34.0); MCHC 33.9 g/dL (28.0-37.0); RBC 4.33 mil/uL (4.50-6.00); RDW 14.9 % (10.5-14.5)
[2020-10-08 06:04] LABS: ALBUMIN 3.7 g/dL (3.4-5.0); CALCIUM 8.5 mg/dL (8.5-10.1); CREATININE 1.2 mg/dL (0.7-1.3); PHOSPHORUS 4.9 mg/dL (2.5-4.9); POTASSIUM 3.3 mmol/L (3.5-5.1)
[2020-10-08 08:00] VITALS: BP 145/62
--- NOTE | 2020-10-08 12:08 | NUR ---
Pt admit to Rehab. Pt familiar to RD from stay on acute. Noted with RD consultes 10/02 and 10/05 r/t diet/fluid restriction education. Pt remains nutritionally stable, 2+ edema BLE. Intake 100%, on senna, KCl, torsemide, MVI. Down >10# since admit r/t diuresis. Low nutrition risk.
--- NOTE | 2020-10-08 14:58 | NUR ---
ASSUMED CARE AT 0700. ALERT AND ORIENTATED X 4 WITH NOTICABLE EXPRESSIVE APHASIA AND DYSARTHRIA. REPORTED R ARM PAIN AT 8/10 AND TREATED WITH HYDROCODONE WITH GOOD RELIEF. NOTED R SIDED WEAKNESS WITH FAIR HAND VARNISHER PLASTICOATER. USES CANE FOR AMBULATION. HAS BILATERAL LE EDEMA AND ON TORSEMIDE, DIURESING WELL. WEAR COMPRESSION STOCKING. NYSTATIN CREAM APPLIED TO GROIN SITE. PT VERBALIZES UNDERSTANDING ON FLUID RESTRICTIONS AND HAS BEEN TAKING MEDS WITH APPLE SAUCE.
--- NOTE | 2020-10-08 15:04 | NUR ---
Chart review, new to acute rehab. He lives at home with is . She helps with his cares at home if needed. He been to Adult day care([facility] with transportation, when she goes to work. manage his medication, assist with dressing. Cane, walker, shower bench, cpap and breathing tx. Will cont following as needed for dc needs.
[2020-10-08 20:00] VITALS: BP 142/60
--- NOTE | 2020-10-09 00:44 | NUR ---
PT ALERT AND ORIENTED X 4. EXPRESSIVE APHASIA AND SLURRED SPEECH NOTED. RIGHT SIDED WEAKNESS. UP TO BR PER W/C AND TRANSFERS TO TOILET WITH ASSIST X 1. PT C/O PAIN IN RIGHT SIDE. HYDROCODONE GIVEN ORDERED. PT TOOK HS MEDS IN APPLESAUCE WITHOUT DIFFICULTY. BED ALARM ON FOR SAFETY. PT CHECKED ON HOURLY ROUNDS.
[2020-10-09 08:00] VITALS: BP 129/62
--- NOTE | 2020-10-09 08:29 | NUR ---
Chart review. Cont. discharge planning as needed for dc needs.
--- NOTE | 2020-10-09 11:00 | NUR ---
ASSUMED CARE AT 0700. ALERT AND ORIENTATED X 4. REPORTED PAIN IN R SHOULDER AND LEG AND TREATED WITH HYDROCODONE WITH GOOD RELIEF. HAS MODERATE STRENGTH AND DEVELOPER ADVOCATE ON THE RIGHT SIDE. UP WITH CANE AND GAIT BELT. DIURESING ADEQ, ON TORSEMIDE. LYMPHEDEMA TREATMENT DONE TODAY. APPETITE GOOD, LAST BM 10/08. ON STOOL REGIMEN. PARTICIPATING WITH THERAPY AND PROGRESSING TOWARDS GOAL. NYSTATIN CREAM APPLIED TO GROIN AREAS.
[2020-10-09 19:34] VITALS: BP 127/68
--- NOTE | 2020-10-10 00:36 | NUR ---
PT ALERT AND ORIENTED X 4. AMB TO BR WITH CANE AND ASSIST X 1. CPAP ON DURING THE NIGHT. LYMPHEDEMA WRAPS INTACT TO BILAT LE'S. PT TOOK HS MEDS IN APPLESAUCE WITHOUT DIFFICULTY. PT C/O PAIN ON RIGHT SIDE OF BODY. HYDROCODONE GIVEN ORDERED. PT SLEEPING UPON REASSESSMENT. BED ALARM ON FOR SAFETY. PT CHECKED ON HOURLY ROUNDS.
[2020-10-10 05:28] LABS: ALBUMIN 3.5 g/dL (3.4-5.0); CALCIUM 8.5 mg/dL (8.5-10.1); CREATININE 1.3 mg/dL (0.7-1.3); PHOSPHORUS 4.5 mg/dL (2.6-4.7); POTASSIUM 3.4 mmol/L (3.5-5.1)
[2020-10-10 07:55] VITALS: BP 154/64
--- NOTE | 2020-10-10 10:26 | NUR ---
ASSUMED CARE AT 0700. PATIENT IS ALERT AND ORIENTED X4. PATIENT HAS RIGHT SIDED WEAKNESS. PATIENT IS UP WITH ASSISS OF 1 STAFF AND GAIT BELT. PATIENT HAS EXPRESSIVE APHAGIA, AND SOME SLURRED SPEECH. LUNGS ARE CLEAR. ABD IS SOFT WITH BSX4. PATIENT IS ON 1500 CC FLUID RESTRICTION. PATIENT HAS LYMPHEDEMA WRAPS TO BOTH LEGS. UP IN THE CHAIR FOR MEALS. FALL AND SAFETY PROTOCOLS IN PLACE. C/O PAIN IN HIS RIGHT SIDE. MEDICATED WITH PRN PAIN MED. CONTINUES TO PROGRESS SLOWLY TOWARDS D/C GOALS. WILL CONTINUE TO MONITER.
[2020-10-10 20:15] VITALS: BP 138/63
--- NOTE | 2020-10-11 01:39 | NUR ---
PT ASSESSMENT COMPLETED AND VSS. MEDS GIVEN ORDERED AND WELL TOLERATED. FALL PRECAUTIONS IN PLACE. UP TO THE BATHROOM WITH ASST/GAIT/CANE. LARGE SOFT BROWN BM. STEADY. PT FEELING DEPRESSED TONIGHT BECAUSE HIS WEIGHT WAS UP TODAY. PROVIDED MUCH EMOTIONAL SUPPORT. PRN PAIN MEDICATION HELPFUL. SNACK PROVIDED BEFORE BED. ASST WITH REPOSITION USING PILLOWS FOR COMFORT. LEONIE LOWER LEG DRESSINGS DRY AND INTACT. PT SLEEPING WELL AT THIS TIME. WILL CONTINUE TO MONITOR FREQUENTLY.
[2020-10-11 07:15] VITALS: BP 130/55
--- NOTE | 2020-10-11 11:30 | NUR ---
ASSUMED CARE AT 0700. ALERT AND ORIENTATED X 4. PAIN IS STABLE AND CONTROLLED IN R ARM. PT WAS UPSET AND CONCERNED ABOUT NOT LOSING WEIGHT DESPITE ON TORSEMIDE. PT EDUCATED ABOUT MAINTAINING FLUID RESTRICTIONS. LYMPH WRAP IN PLACE AND LEGS ELEVATED. EFFIE CABRERA. PARTICIPATED WITH PHY THERAPY.
[2020-10-11 19:52] VITALS: BP 137/66
--- NOTE | 2020-10-12 03:08 | NUR ---
MOVES WELL WITH CANE ON LEFT SIDE, REMINDED OF FALL PRECAUTIONS. UP TO TOILET WITH GAIT BELT, SBA, AND CANE FOR BM LAST EVENING. CONCERNED ABOUT GETTING ENOUGH TO EAT, PLAN TO CALL DIETARY IN THE MORNING WITH HIS ALTERNATE CHOICES USING URINALS, TAKING TORSEMIDE Q 8 HOURS.
[2020-10-12 08:00] VITALS: BP 123/53
--- NOTE | 2020-10-12 13:05 | NUR ---
RD consulted r/t pt wishes to have some dietary restrictions lifted. He is on a renal, 2gmNa, heart healthy diet with [address] Pt requesting 2% milk, starch alternatives to rice, bananas and other fresh fruit. RD spoke with nursing to request charge master coordinator drop Renal diet restriction. Labs show BUN/Cr, Phos WNL and K 3.4. Pt aware of request made and was gateful. Remains low nutrition risk.
[2020-10-12 13:17] VITALS: BP 114/79
--- NOTE | 2020-10-12 14:53 | NUR ---
ASSUMED CARE AT 0700. ALERT AND ORIENTATED X 4. HAS R SIDED WEAKNESS WITH MODERATE AND FAIR STRENGTH AND LEAD OXIDE MILL TENDER IN UE AND LE. USES A CANE WITH AMBULATION. NO CHANGES IN WEIGHT AND SEEMS TO FLUCTUATE DAILY. DR SCHMITT STARTED ON IV LASIX AT 10ML/HR AT 1130. CONT WITH FLUID RESTRICTION AND STRICT AND I/O. DIURESING ADEQ. VS [id number] AND LAST BM 114/79 HR 70, NO COMPLAINS OF LIGHTHEADEDNESS AND DIZZY. APPETITE GOOD, HAD A LARGE BM TODAY. PARTICIPATING WITH THERAPY. NO REPORTED OR COMPLAINED OF PAIN.
[2020-10-12 17:06] VITALS: BP 137/72
[2020-10-12 19:46] VITALS: BP 112/63
--- NOTE | 2020-10-13 00:44 | NUR ---
PT ASSESSMENT COMPLETED AND VSS. MEDS GIVEN ORDERED AND WELL TOLERATED. FALL PRECAUTIONS IN PLACE. UP TO THE BATHROOM A FEW TIME. ONE ASST/GAIT/CANE. PT VOIDING LARGE AMOUNT OF YELLOW URINE WITH LASIX DRIP. PRN PAIN MEDICATION WORKING WELL. RT TREATMENT GIVEN AND CPAP ON WITH CONTINOUS 02 SAT MONITOR. PT SLEEPING WELL. DENIES NEEDS. WILL CONTINUE TO MONITOR FREQUENTLY.
[2020-10-13 05:52] LABS: CALCIUM 8.5 mg/dL (8.5-10.1); CREATININE 1.2 mg/dL (0.7-1.3); MAGNESIUM 2.3 mg/dL (1.8-2.4); POTASSIUM 3.2 mmol/L (3.5-5.1)
[2020-10-13 06:07] LABS: ABSOLUTE NEUTROPHILS 4.8 thou/uL (1.4-8.2); EOSINOPHILS 2.7 % (0.0-3.0); HEMATOCRIT 36.5 % (42.0-52.0); HEMOGLOBIN 12.4 gm/dL (14.0-18.0); LYMPHOCYTES 20.9 % (24.0-44.0); MCH 30.5 pg (26.0-34.0); MCHC 33.8 g/dL (28.0-37.0); MCV 90.1 fL (80.0-100.0); MONOCYTES 9.4 % (1.0-8.0); PLATELET COUNT 202 thou/uL (150-400); RBC 4.05 mil/uL (4.50-6.00); RDW 14.8 % (10.5-14.5); WBC 7.3 thou/uL (4.0-11.0)
[2020-10-13 08:00] VITALS: BP 115/54
--- NOTE | 2020-10-13 09:30 | NUR ---
ASSUMED CARE AT 0700. PATIENT IS ALERT AND ORIENTED X4. PATIENT HAS RIGHT SIDED WEAKNESS. LUNGS ARE CLEAR. ABD IS SOFT WITH BSX4. UP TO THE BATHROOM WITH ASSIST OF 1 STAFF AND GAIT BELT TO VOID RAJANI COLORED URINE. UP IN CHAIR FOR MEALS. FALL AND SAFETY PROTOCOLS IN PLACE. C/O PAIN IN HIS LEGS. MEDICATED WITH PRN PAIN MED. CONTINUES TO PROGRESS SLOWLY TOWARDS D/C GOALS. PATIENT CONTINUES ON LASIX GTT AT 10 CC/HR. IV SITE WITHOUT REDNESS OR SWELLING. WILL CONTINUE TO MONITER.
--- NOTE | 2020-10-13 12:59 | NUR ---
Team meeting, on iv Lasix drip. Pole Peeling Machine Operator Helper to messi for resting hand splint. DC 10/16, he need follow up with his pcp. education for bilat lower ext. wrapping of his legs. Have dietitian speak with on diet that would not increase swelling from foods. Will cont. following as needed for dc needs.
[2020-10-13 19:43] VITALS: BP 138/59
--- NOTE | 2020-10-14 02:11 | NUR ---
PT ASSESSMENT COMPLETED AND VSS. MEDS GINEN ORDERED AND WELL TOLERATED. FALL PRECAUTIONS IN PLACE. UP TO THE BATHROOM WITH ASST/GAIT/CANE. STEADY. PT DISCOURAGED ABOUT HIS WEIGHT GOING UP. FUROSEMIDE RUNNING AT 10 ML/HR. PRN PAIN MEDICATION WORKING WELL. LEONIE LOWER LEG LYMPH WRAPS DRY AND INTACT. SLEEPING WELL WITH CPAP AND 02 SAT MONITOR ON. WILL CONTINUE TO MONITOR FREQUENTLY.
[2020-10-14 07:15] VITALS: BP 127/61
--- NOTE | 2020-10-14 12:29 | NUR ---
ASUMMED CARE AT 0700. PATIENT IS ALERT AND ORIENTEDX4. PATIENT HAS EXPRESSIVE APHAGIA, AND RIGHT SIDED WEAKNESS. LUNGS ARE CLEAR AND DEMINISHED. PATIENT CONTINUES ON RESPIRATORY TX. ABD IS SOFT WITH BSX4. PATIENT HAD BM TODAY. FALL AND SAFETY PROTOCOLS IN PLACE. C/O LEG PAIN. MEDICATED WITH PRN PAIN MED. PATIENT CONTINUES ON LASIX IV GTT. PATIENT CONTINUES TO DIURESS WELL. WT IS DOWN. CLOTH BALER HERE TO SEE AND OFFER SUGGESTIONS FOR FOOD SELECTIONS AT HOME UPON DISCHARGE. CONTINUES TO PROGRESS TOWARDS D/C GOALS. WILL CONTINUE TO MONITER.
--- NOTE | 2020-10-14 15:51 | NUR ---
Left message for pt's spouse tiera to contact cm regarding dc Monday and to review the care team recommendations.
[2020-10-14 20:04] VITALS: BP 153/70
--- NOTE | 2020-10-15 03:43 | NUR ---
ASSUMED CARE AT 1900 OF 10/14. PATIENT IS A&OX4, EXHIBITS DYSARTHIA DUE TO HX OF CVA. RIGHT SIDED WEAKENESS IS ALSO PRESENT, AND PATIENT IS CONTACT GUARD ASSIST WITH TRANSFERS AND AMBULATION USING GB AND CANE. URINAL AT BED SIDE, CONTINUES ON IV LASIX DRIP, RUNNING A 10CC/HR. IV SITE HAS NO S/S OF INFECTION OR INFILTRATION. CPAP ON AT HS, APPEARS TO BE SLEEPING DURING ROUNDS, WILL CONTINUE TO MONITOR.
[2020-10-15 06:22] LABS: ALBUMIN 3.8 g/dL (3.4-5.0); CALCIUM 8.5 mg/dL (8.5-10.1); CREATININE 1.3 mg/dL (0.7-1.3); MAGNESIUM 2.3 mg/dL (1.8-2.4); PHOSPHORUS 4.4 mg/dL (2.5-4.9); POTASSIUM 3.1 mmol/L (3.5-5.1)
[2020-10-15 08:00] VITALS: BP 130/65
--- NOTE | 2020-10-15 16:08 | NUR ---
SW informed bt PT/OT that pt needed additional community transportation services. SW met w/ pt to provide additional resources. No further needs identified at this time. Pt spouse on video call during visit and they did not have questions.
--- NOTE | 2020-10-15 19:44 | NUR ---
ASSUMED CARE AT 0700. PT A/O X 4, SOME EXRESSIVE APHASIA. PT UP WITH SBA WITH CANE TO TOILET, BM THIS EVENING. SOB WITH EXERTION. LASIX GTT CONTINUOUS INFUSION PER EMAR ORDER. GIVEN 1X DOSE OF METOLAZONE THIS AFTERNOON WELL PER DR AGUILA ORDER. POTASSIUM REPLACED TODAY PER ORDER. 1500CC FLUID RESTRICTION IN PLACE WELL. PAIN CONTROLLED WELL WITH PRN MEDS. PT PROGRESSING TOWARDS POC GOALS.
[2020-10-15 19:58] VITALS: BP 147/78
--- NOTE | 2020-10-16 00:30 | NUR ---
PT ALERT AND ORIENTED X 4. AMB TO BR WITH CANE AND ASSIST X 1 WITHOUT DIFFICULTY. RIGHT SIDED WEAKNESS AND EXPRESSIVE APHASIA. LASIX DRIP INFUSING ORDERED. JONY WRAPS INTACT TO BILAT LE'S. VOIDING ADEQUATE AMTS CLEAR YELLOW URINE. BED ALARM ON FOR SAFETY. PT APPEARS TO BE SLEEPING ON HOURLY ROUNDS.
[2020-10-16 07:15] VITALS: BP 126/64
[2020-10-16] MEDS ORDERED: LIORESAL 10 MG10 MG PO (08:41)
[2020-10-16] MEDS ORDERED: TORSEMIDE20 MG PO ×2 (08:41→09:51)
[2020-10-16] MEDS ORDERED: MIRALAX17 GM PO (08:41)
[2020-10-16] MEDS ORDERED: POTASSIUM20 PO (08:41)
--- NOTE | 2020-10-16 09:20 | NUR ---
PT SITTING UP IN CHAIR THIS AM EATING FRUIT. AT BEDSIDE. PT GOING HOME TODAY. PT DENIES ANY PAIN. PT NOT VERY VERBAL. PT TOOK MEDS WITH APPLESAUCE WITHOUT ANY ISSUES. PT LUNGS DIMINISHED TO BASES, NO COUGH. PT IS ON LASIX DRIP AT THIS TIME. PT VOIDS PER URINAL. PT UP WITH STAND-BY ASSIST WITH CANE OR WALKER. PT RECIEVED KDUR 40MEQ THIS AM DUE TO LOW K LEVEL OF 3.0. PT HAD BM 10/15.
[2020-10-16 12:48] VITALS: BP 126/64
--- NOTE | 2020-10-16 13:10 | NUR ---
PT GETTING LEGS WRAPS DONE AT THIS TIME. PT AT BEDSIDE WATCHING HOW TO WRAP LEGS. PT HAD SHOWER TODAY ALSO.
--- NOTE | 2020-10-16 14:30 | NUR ---
PT VERBALY UNDERSTOOD D/C ORDERS. PT LEFT VIA W/C TO CAR. PT HAS BELONGINGS AND ALSO TOOK AFTERNOON MEDICATION. PT ABLE TO TRANSFER FROM W/C TO CAR.
== END 2020-10-16 14:30 | disposition home or self-care (01) | DRG 56 ==
PROVIDERS: Hospitalist; Nurse Practitioner; ADMIT Physical Medicine & Rehabilitation; ATTEND Physical Medicine & Rehabilitation
PROC: 5A09457 Assistance with Respiratory Ventilation, 24-96 Consecutive Hours, Continuous Positive Airway Pressure (ICD-10-PCS; principal; 2020-10-10)
PROC: 5A09357 Assistance with Respiratory Ventilation, Less than 24 Consecutive Hours, Continuous Positive Airway Pressure (ICD-10-PCS; 2020-10-12)
PROC: 5A09357 Assistance with Respiratory Ventilation, Less than 24 Consecutive Hours, Continuous Positive Airway Pressure (ICD-10-PCS; 2020-10-13)
PROC: 5A09357 Assistance with Respiratory Ventilation, Less than 24 Consecutive Hours, Continuous Positive Airway Pressure (ICD-10-PCS; 2020-10-14)
DX: I69.351 Hemiplegia and hemiparesis following cerebral infarction affecting right dominant side (principal); I50.33 Acute on chronic diastolic (congestive) heart failure; I13.0 Hypertensive heart and chronic kidney disease with heart failure and stage 1 through stage 4 chronic kidney disease, or unspecified chronic kidney disease; Z68.44 Body mass index [BMI] 60.0-69.9, adult; J44.9 Chronic obstructive pulmonary disease, unspecified; G47.33 Obstructive sleep apnea (adult) (pediatric); N18.30 Chronic kidney disease, stage 3 unspecified; E78.5 Hyperlipidemia, unspecified; I48.0 Paroxysmal atrial fibrillation; E87.6 Hypokalemia; I25.5 Ischemic cardiomyopathy; G40.909 Epilepsy, unspecified, not intractable, without status epilepticus; G89.29 Other chronic pain; R53.81 Other malaise; I27.20 Pulmonary hypertension, unspecified; I65.29 Occlusion and stenosis of unspecified carotid artery; E66.01 Morbid (severe) obesity due to excess calories; I25.2 Old myocardial infarction; Z95.1 Presence of aortocoronary bypass graft; Z88.8 Allergy status to other drugs, medicaments and biological substances; Z86.718 Personal history of other venous thrombosis and embolism; Z87.891 Personal history of nicotine dependence
CPT/HCPCS: 10112

== ENCOUNTER → 2020-10-22 | Outpatient (CLI) | payer OTHER ==
[~2020-10-22] MED LIST changes: +MIRALAX17 GM PO
== END ==
LOC: SJCVCIMAG 08:13
PROVIDERS: ATTEND Internal Medicine
DX: I65.23 Occlusion and stenosis of bilateral carotid arteries (principal); I63.512 Cerebral infarction due to unspecified occlusion or stenosis of left middle cerebral artery; I10 Essential (primary) hypertension; Z87.891 Personal history of nicotine dependence

== ENCOUNTER → 2021-03-01 | Outpatient (CLI) | payer OTHER | LOC: CAT 08:29 | PROVIDERS: ATTEND Pediatrics | DX: Z12.2 Encounter for screening for malignant neoplasm of respiratory organs (principal); Z87.891 Personal history of nicotine dependence ==

== ENCOUNTER 2021-04-02 15:37 | Inpatient (IN) | payer OTHER ==
[~2021-04-02] VITALS: Ht 180.3 cm; Wt 152.0 kg
[2021-04-02 16:05] VITALS: BP 114/54
[2021-04-02 18:41] LABS: ABSOLUTE NEUTROPHILS 9.5 thou/uL (1.4-8.2); BASOPHILS 0.5 % (0.0-2.0); EOSINOPHILS 1.2 % (0.0-3.0); HEMOGLOBIN 11.6 gm/dL (14.0-18.0); LYMPHOCYTES 8.3 % (24.0-44.0); MCH 29.6 pg (26.0-34.0); MCHC 33.1 g/dL (28.0-37.0); MCV 89.5 fL (80.0-100.0); MONOCYTES 7.7 % (1.0-8.0); PLATELET COUNT 263 thou/uL (150-400); POLYS 82.3 % (36.0-66.0); RBC 3.91 mil/uL (4.50-6.00); RDW 15.2 % (10.5-14.5); WBC 11.5 thou/uL (4.0-11.0)
[2021-04-02 18:53] LABS: APTT 43.6 Seconds (24.5-32.8); INR 1.2
[2021-04-02 18:57] LABS: ALBUMIN 3.5 g/dL (3.4-5.0); CREATININE 1.9 mg/dL (0.7-1.3); TOTAL BILIRUBIN 0.6 mg/dL (0.2-1.0); TOTAL PROTEIN 7.4 g/dL (6.4-8.2)
[2021-04-02 19:03] LABS: POTASSIUM 2.7 mmol/L (3.5-5.1)
[2021-04-03 02:19] VITALS: BP 103/39
[2021-04-03 06:28] LABS: HEMATOCRIT 33.3 % (42.0-52.0); HEMOGLOBIN 11.1 gm/dL (14.0-18.0); MCH 29.7 pg (26.0-34.0); MCHC 33.4 g/dL (28.0-37.0); RBC 3.74 mil/uL (4.50-6.00); RDW 15.1 % (10.5-14.5); WBC 9.1 thou/uL (4.0-11.0)
[2021-04-03 06:44] LABS: CALCIUM 8.7 mg/dL (8.5-10.1); CREATININE 1.6 mg/dL (0.7-1.3); MAGNESIUM 2.5 mg/dL (1.8-2.4)
[2021-04-03 06:53] LABS: POTASSIUM 2.5 mmol/L (3.5-5.1)
[2021-04-03 08:14] VITALS: BP 110/65
--- NOTE | 2021-04-03 10:29 | HC ---
[facility] [place] [address] [place] [address] CONSULTATION Name: JENN BASURTO Room #: 170-11 ADM IN M.R.#: [id number] Admission: 04/02/21 Attend Phys: Corby Law MD Discharge: Date of : 55 Report #: [id number] THIS REPORT FOR: cc: Diogo Taylor MD, Jeremy C. MD Barry, Joseph W. MD ~ DATE OF SERVICE: 04/03/2021 INFECTIOUS DISEASE CONSULTATION REASON FOR EVALUATION: Right upper extremity skin and soft tissue infection with cellulitis. HISTORY OF PRESENT ILLNESS: Chart reviewed. The patient examined. This is a 65-year-old gentleman with fairly extensive medical history, previous stroke with right-sided residual paresis, who apparently over the course of the last 48 hours had developed pain, swelling as well as redness associated with the proximal aspect of his right upper extremity. He is somewhat lethargic at this point. He denies any antecedent injury, really unable to give details of his history. Apparently, he has had some low-grade temperature elevations, poor p.o. intake. Evaluation was undertaken. Coronavirus testing was negative, was found to be hypokalemic and creatinine elevation of 1.9. Sed rate of 73. CRP of 181. Lactic acid 1.8. Blood cultures collected at the time of admission are sterile thus far. Tentatively diagnosed with cellulitis. He was started empirically on therapy with cefepime and vancomycin. ALLERGIES: TO FENTANYL, LEVOTHYROXINE, PREGABALIN. CURRENT MEDICATIONS: Include atorvastatin, dabigatran, amiodarone, aspirin, Lipitor, levetiracetam, carvedilol, budesonide, pantoprazole, levothyroxine, baclofen, ipratropium, albuterol inhaler, cefepime and vancomycin. PAST MEDICAL HISTORY: As described above, sleep apnea, ITP, has known coronary artery disease with previous non-STEMI aortocoronary bypass grafting, previous CVA with residual right-sided weakness, seizure disorder, has a cardiomyopathy with congestive heart failure, history of hypertension. SOCIAL HISTORY: Former smoker. No illicit drug use. No significant ethanol. FAMILY HISTORY: Noncontributory. REVIEW OF SYSTEMS: Limited due to his encephalopathy. PHYSICAL EXAMINATION: GENERAL: He appears chronically ill. He is obese, lethargic, suspect at least mildly encephalopathic. [facility] [address] [place] [address] CONSULTATION Name: JENN BASURTO Room #: 170-11 [facility] IN ..#: [id number] Admission: 04/02/21 Attend Phys: Corby Law MD Discharge: Date of : 55 Report #: [id number] VITAL SIGNS: Temperature 97.6, pulse 73, respirations 18, blood pressure 103/39. SKIN: Warm, dry, no rashes. HEENT: Normocephalic. Extraocular muscles intact. Nasal cannula in place, 4 liters. NECK: Supple. LUNGS: Diminished breath sounds. Few scattered crackles at the bases. HEART: Regular. Has some ectopy, soft systolic murmur. ABDOMEN: Obese, firm. No peritoneal signs. Proximal right upper extremity has an erythrodermic type eruption. At this point, I do not see any bullous lesions, no ulcers, it is quite warm to touch and there is additional inflammatory signs of tender to palpation and some swelling. GENITOURINARY AND RECTAL: Deferred. LABORATORY DATA: As described above. Blood cultures sterile thus far. Electrolytes: Sodium 130, potassium 2.5, chloride 93, bicarbonate is 29, anion gap of 8, BUN and creatinine 23 and 1.6, glucose of 136, estimated GFR 44. CBC: White count 9.1, H and H 11.1 and 33.3, platelets of 249. Lactic acid 1.5. ASSESSMENT AND PLAN: Right upper extremity inflammatory eruption. I think the evidence favors a skin and soft tissue infection with cellulitis. We will continue current therapy with a combination at this point. Certainly given his overall disease burden at risk for additional complications, do not know if he can utilize incentive spirometer at this point. At some point, may add compression and see how he does clinically. <ELECTRONICALLY SIGNED> By: Topher Shipley MD 04/03/21 1029 [id number] Topher Shipley MD /nt
[2021-04-03 12:28] VITALS: BP 116/55
[2021-04-03 16:20] VITALS: BP 100/45
[2021-04-04] VITALS: BP 110/56
[2021-04-04 04:00] VITALS: BP 110/68
[2021-04-04 09:06] VITALS: BP 110/68
[2021-04-04 21:37] VITALS: BP 111/40
--- NOTE | 2021-04-04 21:54 | NUR ---
LEFT UPPER ARM/CHEST IV LEAKING - REMOVED. NO S/S INFECTION NOTED. LEFT AC IV INTACT.
--- NOTE | 2021-04-05 05:27 | NUR ---
PT HAS CHRONIC EXPRESSIVE APHASIA AND RIGHT SIDED WEAKNESS. RIGHT UPPER ARM WITH CELLULITIS - RED, SWOLLEN, BUT NO OPEN SKIN AREAS NOTED. VSS. VOIDS PER URINAL. PT SLEPT PART OF THE NIGHT. RESP EVEN AND UNLABORED. NO NEW COMPLAINTS.
[2021-04-05 06:18] LABS: HEMATOCRIT 30.9 % (42.0-52.0); HEMOGLOBIN 10.3 gm/dL (14.0-18.0); MCH 30.2 pg (26.0-34.0); MCHC 33.3 g/dL (28.0-37.0); MCV 90.6 fL (80.0-100.0); RBC 3.41 mil/uL (4.50-6.00); RDW 14.7 % (10.5-14.5); WBC 7.4 thou/uL (4.0-11.0)
[2021-04-05 06:25] LABS: CALCIUM 8.5 mg/dL (8.5-10.1); CREATININE 1.1 mg/dL (0.7-1.3); POTASSIUM 3.7 mmol/L (3.5-5.1)
[2021-04-05 08:19] VITALS: BP 105/38
--- NOTE | 2021-04-05 18:24 | NUR ---
NURSING NOTE: ADMISSION NOTE: PT ARRIVED TO UNIT AT 1645 TODAY PER W/C AND ER NURSE. ALERT AND ORIENTED X4. MOVES LEFT SIDED EXTREMITIES WITHOUT DIFFICULTIES. RIGHT SIDE WEAK D/T PREVIOUS CVA-ARM ALMOST FLACCID WITH ONLY SLIGHT MOVEMENT IN THE SHOULDER. RIGHT LEG PARTIAL MOVEMENT AND WEAK. PT DOES MOST CARE HIMSELF. WALKS WITH CANE. FEEDS HIMSELF. NEEDS ASSIST X1 TO COMMODE AND ASSIST WITH WIPING. WOULD LIKE PT/OT FOR STRENGTHENING. ALL VS AND ASSESSMENTS CHARTED. CURRENTLY VISITING WITH AT BEDSIDE.
[2021-04-05 19:57] VITALS: BP 121/40
[2021-04-06 03:30] LABS: HEMATOCRIT 32.1 % (42.0-52.0); HEMOGLOBIN 10.9 gm/dL (14.0-18.0); MCH 30.5 pg (26.0-34.0); MCHC 33.9 g/dL (28.0-37.0); RBC 3.56 mil/uL (4.50-6.00); RDW 14.8 % (10.5-14.5); WBC 8.9 thou/uL (4.0-11.0)
[2021-04-06 03:55] LABS: CREATININE 1.3 mg/dL (0.7-1.3); POTASSIUM 4.3 mmol/L (3.5-5.1)
[2021-04-06 04:26] VITALS: BP 110/39
--- NOTE | 2021-04-06 05:33 | NUR ---
PT HAS BEEN RESTING IN NO ACUTE DISTRESS.A/OX4.VSS.RIGHT ARM ELEVATED ON A PILLOW TO REDUCE THE SWELLING.PT C/O ABD GAS PAINS THAT GET RELIEVED BY USE OF THE BR AND ALSO SODA.STAFF ASSIST TO BR .SOB NOTED W/EXERTION.O2 AT [facility] WHILE SLEEPING D/T TONYA.PT POC IS GRACY ONTINUE W/ANTIBIOTICS.
[2021-04-06 07:00] VITALS: BP 108/48
[2021-04-06 12:24] VITALS: BP 108/48
--- NOTE | 2021-04-06 12:25 | NUR ---
Case opened to follow for dc planning. Pt known to cm from previous admission and stay on [facility] acute [facility] in October 2020. He was dc'd to home with his Dary. He was able to resume going out to [facility] [employer] to , when she is at work. He walks with a st cane and she assists him on the 10 steps in and out of the home. She reports helping with ADLS setup/some assist with lower ex dressing and wraping his legs. He sees Dr. Taylor regularly and Dr. Cardenas with [facility]. His spot at the daycare is being held for him. She is aware that he may be dc ready at the end of the week and can take off early on and has Monday off. She states he has a nebulizer and inhalers to manage his copd. He has not been on home o2 and she will f/u with [facility] if indicated. She is hopeful he will wean off prior to dc. PT/OT are seeing him. HH recommended but pt does not qualify as he is not homebound and goes with her shopping, etc...
--- NOTE | 2021-04-06 13:11 | NUR ---
Pt assessed d/t triggered for high BMI 46.8, extreme class III obesity. Dx cellulitis RUE on ABT. He is noted with hx admits and last admit was in October. Weight stable since last admit, >6 months. Intakes have been avg 50% this admit, but has hx good dietary intakes. Pt has been educated in the past r/t renal, dm, weight loss, fluid restriction. Pt declined need for any nutrition education or supplements at this time, voiced good appetite. Follow weight/intake trends. Low nutrition risk.
--- NOTE | 2021-04-06 18:19 | NUR ---
NO FALLS OR INJURIES THIS SHIFT. VSS. PATIENT ABLE TO COMPLETE ADLs WITH ASSISTANCE. UP WITH ONE AND CANE TO BR. MEDS IN APPLESAUCE. NO C/O PAIN. TOLERATES DIET. SR-SA ON TELE. REMAINS ON 2LNC. PATIENT PROGRESSING TOWARD POC.
[2021-04-06 19:20] VITALS: BP 113/64
[2021-04-07 03:34] VITALS: BP 107/65
--- NOTE | 2021-04-07 06:27 | NUR ---
PATIENT RESTING IN ROOM WITH FAMILY MEMBER. ASSISTED PT TO RESTROOM. PT IS AAOX4. PATIENT AMBULATES WITH MINIMAL ASSISTANCE WITH STAFF AND HIS CANE. PATIENT TAKES HIS MEDICATION WITH APPLESAUCE. HIS IV IS LEAKING AND NEW ACCESS IS UNABLE TO BE INITIATED. WILL HAVE IV TEAM ASSESS IN THE AM. HE IS CALM AND COMPLIANT. URINATES PER URINAL.
[2021-04-07 08:38] VITALS: BP 108/38
[2021-04-07 11:37] VITALS: BP 112/48
--- NOTE | 2021-04-07 15:08 | NUR ---
MIDLINE INSERTION L ARM CLEANED WITH CHLOROPREP. PT DRAPED IN STERILE FASHION. 1% LIDOCAINE USED FOR LOCAL. L CEPHALIC VEIN ACCESSED IN 1 ATTEMPT. MIDLINE TRIMMED TO 19CM AND THREADED WITHOUT DIFFICULTY. MIDLINE EXTERNAL 2CM. MIDLINE FLUSHING AND ASPIRATING. MIDLINE GOOD TO USE.
--- NOTE | 2021-04-07 15:24 | NUR ---
PER PHARMACY, IF LINEZOLID IS STARTED NOW, START NEXT DOSE AT MIDNIGHT AND THEN CONTINUE WITH REGULAR SCHEDULE THERE AFTER. WCTM
[2021-04-07 15:48] VITALS: BP 119/48
--- NOTE | 2021-04-07 16:41 | NUR ---
NO FALLS OR INJURIES THIS SHIFT. MIDLINE PLACED AND ANTIBOTICS STARTED. NEXT DOSE TO BE GIVEN AT MIDNIGHT AND THEN BACK TO SCHEDULE TIME. PT UP TO BR FOR SEVERAL BMs TODAY, AMBULATED WITH GB ABD CANE. SAT UP IN CHAIR AND BED THROUGHOUT THE DAY. PATIENT TO DC HOME TOMORROW OR NEXT DAY.
[2021-04-07 19:30] VITALS: BP 136/77
[2021-04-08 03:19] VITALS: BP 132/56
[2021-04-08 03:27] LABS: HEMATOCRIT 32.4 % (42.0-52.0); HEMOGLOBIN 10.7 gm/dL (14.0-18.0); MCH 30.1 pg (26.0-34.0); RBC 3.56 mil/uL (4.50-6.00); RDW 15.3 % (10.5-14.5); WBC 7.7 thou/uL (4.0-11.0)
[2021-04-08 03:46] LABS: CALCIUM 8.6 mg/dL (8.5-10.1); CREATININE 1.3 mg/dL (0.7-1.3)
--- NOTE | 2021-04-08 05:25 | NUR ---
PATIENT RESTING IN HIS ROOM AAOX4 WATCHING TV WITH HIS . PATIENT STATED THAT HIS BACK WAS ITCHING. LOTION APPLIED. PATIENT HAS HAS INCREASED URINE OUTPUT AFTER HAVING HIS TORSEMIDE RESTARTED. HE NOW HAS A L UA MIDLINE IN PLACE. HIS VITALS ARE STABLE. FOLLOWS ALL COMMANDS AND PROMPTS FOR SAFETY PRECAUTIONS. HE DENIES PAIN AT THIS TIME. TAKES MEDICATIONS WITH APPLE SAUCE. NO S/S OF DISTRESS NOTED. WILL CONTINEUI TO MONITOR.
[2021-04-08 07:12] VITALS: BP 117/55
--- NOTE | 2021-04-08 13:57 | NUR ---
TOOK OVER CARE OF PATIENT AT 0700. PT RESTING IN BED AT THIS TIME COMFORTABLY. PT ON ROOM AIR; DENIES SOA BUT BECOMES SOA WITH EXERTION. DENIES ANY PAIN. PT AXOX4; EXPRESSIVE APHASIA DUE TO HX OF CVA WITH RIGHT SIDED WEAKNESS. PT SHOWERED TODAY; EATING WELL. FALL PRECAUTIONS IN PLACE. CALL LIGHT WITHIN REACH.
[2021-04-08 15:45] VITALS: BP 124/60
[2021-04-08 21:14] VITALS: BP 125/65
[2021-04-09 04:40] VITALS: BP 105/53
--- NOTE | 2021-04-09 05:06 | NUR ---
PATIENT DOING WELL TONIGHT. STATED THAT HE FEELS LIKE HE IS BREATHING EASIER SFTER HAVIN A FEW DOSES OF TORSEMIDE NOW. URINE OUTPUT HAS PICKED UP. HE IS AAOX4 AND FOLLOWS ALL COMMANDS. DENIES PAIN OR NEEDS. TOLERATED BIPAP WITH NO ISSUES TONIGHT. VSS. WILL CONTINUE TO MONITOR FOR CHANGES IN STATUS.
[2021-04-09 06:54] LABS: HEMOGLOBIN 10.9 gm/dL (14.0-18.0); MCH 30.2 pg (26.0-34.0); MCV 91.3 fL (80.0-100.0); RBC 3.62 mil/uL (4.50-6.00); RDW 15.4 % (10.5-14.5); WBC 8.6 thou/uL (4.0-11.0)
[2021-04-09 07:00] VITALS: BP 102/53
[2021-04-09 07:41] LABS: CALCIUM 8.3 mg/dL (8.5-10.1); CREATININE 1.7 mg/dL (0.7-1.3); POTASSIUM 3.7 mmol/L (3.5-5.1)
[2021-04-09 11:00] VITALS: BP 134/65
[2021-04-09] MEDS ORDERED: DEMADEX20 MG PO (11:41)
[2021-04-09] MEDS ORDERED: KLOR-CON M2020 MEQ PO (11:41)
[2021-04-09] MEDS ORDERED: LINEZOLID600 MG PO (11:45)
--- NOTE | 2021-04-09 11:56 | NUR ---
TOOK OVER CARE OF THIS PATIENT AT 0700. PT RESTING COMFORTABLY IN BED AT THIS TIME. PT ON ROOM AIR; DENIES SOA; BECOMES SOA WITH EXERTION. PT AMBULATED WITH PHYSICAL THERAPY THIS AM. PT COMPLAINTS OF PAIN IN RIGHT ARM DUE TO HX OF CELLULTITIS AND INJURY. SCHEDULED PAIN MEDICATION ADMINISTERED. PTS PRESENT AT THE BEDSIDE DURING CARE. PLAN TO D/C TODAY PER DOCTORS ORDERS. FALL PRECAUTIONS IN PLACE; CALL LIGHT WITHIN REACH. DENIES ANY OTHER NEEDS.
[2021-04-09 12:05] VITALS: BP 108/48
--- NOTE | 2021-04-09 13:01 | NUR ---
DISCHARGE EDUCATION PROVIDED BY THIS NURSE TO PATIENT AND PATIENT'S SPOUSE. PT AGREEABLE TO DISCHARGE PLAN AND FOLLOW-UP. PT DISCHARGED WITH ALL BELONGINGS. PT DENIES ANY CONCERNS OR QUESTIONS AT THIS TIME.
[2021-04-09 14:13] VITALS: BP 108/48
== END 2021-04-09 14:18 | disposition home or self-care (01) | DRG 602 ==
LOC: ER 15:37 → EROBS 20:43 → 2N 20:43 → EROBS 04-03 12:59 → 2N 04-05 17:04
PROVIDERS: Nurse Practitioner Family; ADMIT Hospitalist; ATTEND Hospitalist
DX: L03.113 Cellulitis of right upper limb (principal); J96.21 Acute and chronic respiratory failure with hypoxia; N17.9 Acute kidney failure, unspecified; G93.40 Encephalopathy, unspecified; I69.351 Hemiplegia and hemiparesis following cerebral infarction affecting right dominant side; I50.32 Chronic diastolic (congestive) heart failure; J96.11 Chronic respiratory failure with hypoxia; D69.3 Immune thrombocytopenic purpura; R78.81 Bacteremia; Z20.822 Contact with and (suspected) exposure to COVID-19; J44.9 Chronic obstructive pulmonary disease, unspecified; I25.10 Atherosclerotic heart disease of native coronary artery without angina pectoris; G40.909 Epilepsy, unspecified, not intractable, without status epilepticus; I11.0 Hypertensive heart disease with heart failure; G47.33 Obstructive sleep apnea (adult) (pediatric); I25.5 Ischemic cardiomyopathy; I27.20 Pulmonary hypertension, unspecified; R53.81 Other malaise; I48.0 Paroxysmal atrial fibrillation; B95.7 Other staphylococcus as the cause of diseases classified elsewhere; E87.6 Hypokalemia; E03.9 Hypothyroidism, unspecified; G89.29 Other chronic pain; M54.9 Dorsalgia, unspecified; M54.2 Cervicalgia; Z86.718 Personal history of other venous thrombosis and embolism; Z95.1 Presence of aortocoronary bypass graft; Z79.899 Other long term (current) drug therapy; I25.2 Old myocardial infarction; Z95.828 Presence of other vascular implants and grafts; Z87.01 Personal history of pneumonia (recurrent); Z88.4 Allergy status to anesthetic agent; Z88.8 Allergy status to other drugs, medicaments and biological substances; Z87.891 Personal history of nicotine dependence; Z79.84 Long term (current) use of oral hypoglycemic drugs; Z99.81 Dependence on supplemental oxygen
CPT/HCPCS: 10081

== ENCOUNTER → 2021-04-30 | Outpatient (CLI) | payer OTHER ==
[~2021-04-30] MED LIST changes: +DEMADEX20 MG PO; +KLOR-CON M2020 MEQ PO; +LINEZOLID600 MG PO
== END ==
LOC: SJCVC 10:18
PROVIDERS: ATTEND Internal Medicine
DX: R94.31 Abnormal electrocardiogram [ECG] [EKG] (principal); I25.5 Ischemic cardiomyopathy; I50.20 Unspecified systolic (congestive) heart failure; I48.0 Paroxysmal atrial fibrillation; E78.5 Hyperlipidemia, unspecified; I63.9 Cerebral infarction, unspecified; M54.50 Low back pain, unspecified; G89.29 Other chronic pain; J44.9 Chronic obstructive pulmonary disease, unspecified; I10 Essential (primary) hypertension; I89.0 Lymphedema, not elsewhere classified; G47.33 Obstructive sleep apnea (adult) (pediatric); Z86.73 Personal history of transient ischemic attack (TIA), and cerebral infarction without residual deficits; Z87.891 Personal history of nicotine dependence; Z79.82 Long term (current) use of aspirin; Z79.899 Other long term (current) drug therapy; Z88.8 Allergy status to other drugs, medicaments and biological substances